=== PATIENT | male | born 1960 | race Caucasian/White ===

== ENCOUNTER 2022-02-18 10:12 | Emergency (ER) | payer OTHER, SELFPAY ==
--- NOTE | ~2022-02-18 | XR_ITS ---
XR abdomen/kub 1V 02/18/2022 10:56 INDICATION: Flank pain TECHNIQUE: KUB COMPARISON: None FINDINGS: Bowel gas pattern is normal. Moderate colonic fecal loading. There is no evidence of free a ir, mass, organomegaly, ascites or obstruction. No abnormal calculi are seen. There are pelvic phleb oliths. The bones appear intact. There is mild dextro scoliosis of the thoracolumbar spine. Mild lumb ar spondylosis. IMPRESSION: 1: No acute abdominal abnormality identified. Reviewed, dictated and finalized at location A.
[2022-02-18 10:20] VITALS: BP 136/90; PULSE 66; RESP 16; TEMP 36.8; O2SAT 100
--- NOTE | 2022-02-18 10:24 | ED.GENADULT ---
HPI - General Adult General Chief complaint: Unspecified Stated complaint: left side rib/side pain Time Seen by Provider: 02/18/22 10:41 Mode of arrival: ambulatory Limitations: no limitations History of Present Illness HPI narrative: 61-year-old male presents with concern for left flank pain. He reports pain started 2 days ago and is very intense. He reports it is now a constant pain. He reports has been taking a lot of ibuprofen without relief. He denies any exacerbating or relieving factors. He denies dysuria, hematuria, difficulty urinating. He denies any injury or trauma. He denies abdominal pain, midline back pain, nausea or vomiting. He reports pain is not worsened with deep breathing or coughing. He denies rash or blisters to the area. MD complaint: Flank pain Related Data Allergies Allergy/AdvReac Type Severity Reaction Status Date / Time No Known Allergies Allergy Verified 02/18/22 10:23 Review of Systems Review of Systems: CONSTITUTIONAL: Denies malaise, chills, sweats, or fever. GASTROINTESTINAL: Denies abdominal pain, nausea, vomiting, diarrhea GENITOURINARY: Denies dysuria or hematuria. Reports left flank pain SKIN: Denies open skin, rash or itching. MUSCULOSKELETAL: Denies midline back pain or myalgia. All systems reviewed & are unremarkable except as noted in HPI and below PMFSH Comments At time of signature, agree with nursing past medical, surgical, social and family history. There is no relevant family history pertinent to the presenting complaint Exam Narrative: GENERAL: Well-appearing and in no acute distress. HEAD: Normocephalic, atraumatic. EYES: PERRLA, sclera clear ENT: Nares clear. Mucous membranes moist. NECK: Supple. CHEST: No respiratory distress. Clear to auscultation. No bony deformities, no asymmetry. Speaks in full sentences. HEART: Regular rate and rhythm. No murmur heard. ABDOMEN: Soft, nontender, nondistended, normal active bowel sounds, no palpable masses. SKIN: Warm, dry, no visible rash, no bruising. No tenderness to touch upon the painful area NEURO: Alert and oriented x3. PSYCH: Normal mood and affect Course Course Emergency Course: Discussed possible diagnoses with patient, discussed transfer to emergency department for further evaluation. Patient reports his primary care doctor is in [place]. Patient does not want to go to the emergency room at this time. Patient was given instructions on when to go to the emergency room, and when to follow-up. Patient is aware of, understands and agrees to treatment plan. Anticipatory guidance given. Patient agrees to follow-up as directed and is aware of reasons to seek care at the emergency department. Portions of this record may have been created with voice recognition software Level of Care: Express Care Visit Vital Signs Vital signs: Reviewed. Medical Decision Making MDM Narrative Medical decision making narrative: Exam findings and imaging show no acute concerns or changes; patient is non-toxic appearing and is in no distress. Patient is appropriate for outpatient treatment and follow-up. Differential Diagnosis Differential Diagnosis: Pyelonephritis, nephrolithiasis, rib injury, pneumonia, shingles, nonspecific back pain Imaging Data My impression: Images reviewed, interpreted by radiologist, agree, see report. Radiologist's impression: XR abdomen/kub 1V 02/18/2022 10:56 INDICATION: Flank pain TECHNIQUE: KUB COMPARISON: None FINDINGS: Bowel gas pattern is normal. Moderate colonic fecal loading. There is no evidence of free air, mass, organomegaly, ascites or obstruction.? No abnormal calculi are seen. There are pelvic phleboliths. The bones appear intact. There is mild dextro scoliosis of the thoracolumbar spine. Mild lumbar spondylosis. IMPRESSION: 1: No acute abdominal abnormality identified. Critical Care Time Critical Care Time Critical Care Time: No Discharge Plan Discharge Clin
== END 2022-02-18 11:30 | disposition home or self-care (01) ==
PROVIDERS: Emergency Provider Nurse Practitioner
DX: R10.9 Unspecified abdominal pain (principal)
CPT/HCPCS: 74018; 81003; 99213; G0463

== ENCOUNTER 2022-05-13 11:48 | Emergency (ER) | payer SELFPAY ==
--- NOTE | ~2022-05-13 | XR_ITS ---
XR chest 2V DATE: 05/13/2022 12:25 INDICATION: Fatigue, muscle pain TECHNIQUE: PA and lateral views COMPARISON: None FINDINGS: Normal heart size. No hilar or mediastinal enlargement. No pulmonary infiltrate or consolid ation, pleural effusion or pulmonary vascular congestion or pneumothorax. IMPRESSION: No active cardiopulmonary disease Reviewed, dictated and finalized at location B.
--- NOTE | 2022-05-13 11:58 | ED.GENADULT ---
HPI - General Adult General Chief complaint: Unspecified Stated complaint: shooting pain in legs, fatigue,headache,cough Time Seen by Provider: 05/13/22 12:04 Source: patient and RN notes reviewed Mode of arrival: ambulatory Limitations: no limitations History of Present Illness HPI narrative: 61 y/o male presented for c/o feeling unwell for about 8 weeks since he had covid. States I am dying. Endorses fatigue and generalized body aches, some days he cannot move his arms. 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 Taking multiple ibuprofen throughout the day otherwise states he cannot function. Denies chest pain, dizziness, abdominal pain, decreased appetite, n/v/d/f/c. Reports occasional cough without shortness of breath or wheezing. His PCP is in [place]. Related Data Allergies Allergy/AdvReac Type Severity Reaction Status Date / Time No Known Allergies Allergy Verified 02/18/22 10:23 Review of Systems Review of Systems: CONSTITUTIONAL: Endorses malaise, denies chills, sweats, fever EYES: Denies visual changes, redness, or discharge ENT: Reports rhinorrhea, congestion, sinus pain, otalgia, sore throat CARDIOVASCULAR: Denies chest pain, palpitations, edema RESPIRATORY: Denies dyspnea GASTROINTESTINAL: Denies abdominal pain, nausea, vomiting, diarrhea SKIN: Denies rash or itching MUSCULOSKELETAL: Endorses myalgia and nerve pain down right leg NEUROLOGIC: Endorses headache Exam Narrative: GENERAL: well-appearing HEAD: Normocephalic EYES: PERRLA, conjunctivae clear ENT: Mucous membranes moist. TM pearly jones with normal light reflex bilaterally; no tragal tenderness. Oropharynx erythematous without lesions or exudate, no drooling, no hoarseness, no trismus, uvula midline. NECK: Supple. Reports pain with lateral movements. No lymphadenopathy, no vpt CHEST: Clear to auscultation, breath sounds equal. No respiratory distress, speaks in full sentences. HEART: Regular rate and rhythm. SKIN: Warm, dry, no rash. MUSC: steady gait, no vpt. Right low back and right posterior hip TTP c/w sciatic nerve pain. NEURO: Alert and oriented x3. PSYCH: Flat affect Course Course Emergency Course: Patient is aware of diagnosis, understands and agrees to treatment plan. Anticipatory guidance given. Patient agrees to follow-up as directed and is aware of reasons to seek care at the emergency department. Portions of this record may have been created with voice recognition software Level of Care: Express Care Visit Vital Signs Vital signs: reviewed Medical Decision Making MDM Narrative Medical decision making narrative: CXR reviewed with pt. His pcp is in [place]. He is advised at length to f/u with them for further evaluation and management of his concerns. He stated multiple times 'what about the dying?' Advised we cannot perform additional labwork, reinforced the need to f/u with pcp, and reviewed Rx's, supportive measures, and s/s to go to the ER. He is stable condition, VSS, and appropriate for outpatient treatment and follow up. Differential Diagnosis Differential Diagnosis: Influenza, covid, sinusitis, OM, strep pharyngitis, URI, long covid, viral infection, arthritis, neuromuscular disorder, fibromyalgia, radiculopathy, neuropathy Imaging Data Radiologist's impression: Patient: Mike Sanabria III : 1960 MR#: [id number] Age/Sex: 61 / M Acct:[id number] Loc: [facility]? ? ADM Date: 05/13/22Attending Dr: Ordering Physician: Pricilla Worthington APRN Date of Service: 05/13/22 Procedure(s): XR chest 2V Accession Number(s): [id number] cc: Pricilla Worthington APRN; UNKNOWN,DOCTOR~ XR chest 2V DATE: 05/13/2022 12:25 INDICATION: Fatigue, muscle pain? TECHNIQUE: PA and lateral views? COMPARISON: None? FINDINGS: Normal heart size. No hilar or mediastinal enlargement. No pulmonary infiltrate or consolidation, pleural effusion or pulmonary vascular congest
[2022-05-13 12:04] VITALS: BP 165/77; PULSE 74; RESP 16; TEMP 36.6; O2SAT 99
== END 2022-05-13 12:47 | disposition home or self-care (01) ==
PROVIDERS: Emergency Provider Nurse Practitioner Family; PCP Family Medicine
DX: M54.16 Radiculopathy, lumbar region (principal); M25.50 Pain in unspecified joint; Z86.16 Personal history of COVID-19
CPT/HCPCS: 71046; 99213; G0463

== ENCOUNTER 2022-06-07 14:12 | Outpatient (CLI) | payer OTHER, SELFPAY ==
[2022-06-07 19:50] LABS: Basophils Absolute Auto 0.1 K/mm3 (0.0-0.1); Basophils Percent Auto 0.9 % (0.2-1.2); Eosinophils Absolute Auto 0.1 K/mm3 (0-0.3); Eosinophils Percent Auto 1.5 % (0-4.4); Hematocrit 28.9 % (42.0-52.0); Hemoglobin 9.6 g/dL (14.0-18.0); Immature Granulocyte Absolute 0.48 K/mm3 (0.00-0.031); Immature Granulocyte Percent A 7.2 % (0-0.5); Lymphocytes Absolute Auto 1.48 K/mm3 (0.9-3.2); Lymphocytes Percent Auto 22.1 % (18.3-44.2); Mean Corpuscular HGB Conc 33.2 g/dl (32-36); Mean Corpuscular Hemoglobin 31.4 pg (26-34); Mean Corpuscular Volume 94.4 fl (80-100); Mean Platelet Volume 9.3 fl (7.4-10.4); Monocytes Absolute Auto 0.5 K/mm3 (0.1-0.6); Monocytes Percent Auto 7.8 % (2.6-8.5); Neutrophils Absolute Auto 4.1 K/mm3 (1.3-6.7); Neutrophils Percent Auto 60.5 % (45.5-73.1); Nucleated Red Blood Cells Perc 0.3 % (0.0-0.2); Platelet Count Result 250 k/mm3 (150-375); Red Blood Count 3.06 M/mm3 (4.6-6.20); Red Cell Distribution Width 13.1 % (11.5-14.5); White Blood Count 6.7 K/mm3 (4.5-10.0)
[2022-06-07 20:10] LABS: Hemoglobin A1C 6.1 % (<5.7)
[2022-06-07 20:22] LABS: Rheumatoid Factor < 8.6 IU/ML (<12)
[2022-06-07 20:33] LABS: Alanine Aminotransferase 27 U/L (6-50); Albumin Level 3.6 g/dL (3.5-5.1); Alkaline Phosphatase 495 U/L (38-126); Anion Gap 12 mmol/L (8-16); Aspartate Amino Transferase 57 U/L (17-59); Bilirubin,Total 0.3 mg/dL (0.2-1.3); Blood Urea Nitrogen 15 mg/dL (9-20); Carbon Dioxide 24 mmol/L (22-30); Chloride 103 mmol/L (98-107); Creatine Kinase 116 U/L (55-170); Estimated Glomerular Filt Rate > 60; Glucose 102 mg/dL (65-110); Potassium 4.3 mmol/L (3.4-5.0); Sodium 139 mmol/L (137-145)
[2022-06-07 20:37] LABS: CRP 15.4 mg/dL (<1.0); Vitamin D 25 Hydroxy 45.9 ng/mL
[2022-06-07 21:50] LABS: Erythrocyte Sedimentation Rate 137 mm/hr (0-20)
[2022-06-13 21:53] LABS: ANA Pattern Nuclear, Speckled; ANA Titer 1:40 (Negative)
== END 2022-06-07 14:13 | disposition home or self-care (01) ==
LOC: ANHGOSHLAB 14:13
PROVIDERS: PCP Family Medicine; Visit Provider Family Medicine
DX: R53.83 Other fatigue (principal); M25.50 Pain in unspecified joint; M79.10 Myalgia, unspecified site; Z13.228 Encounter for screening for other metabolic disorders
CPT/HCPCS: 36415; 80053; 82085; 82306; 82550; 83036; 84443; 85025; 85652; 86038; 86039; 86140; 86430

== ENCOUNTER 2022-06-16 08:59 | Outpatient (CLI) | payer OTHER, SELFPAY ==
--- NOTE | ~2022-06-16 | NM_ITS ---
EXAMINATION: NM bone scan whole body DATE: 06/16/2022 12:59 INDICATION: Weight loss, fatigue and elevated alkaline phosphatase. TECHNIQUE: 3 4.0 mCi Tc-99m HDP was administered intravenously. Delayed whole-body scintigrams were obtained. COMPARISON: Chest radiograph dated 05/13/2022 and KUB dated 02/18/2022 FINDINGS/IMPRESSION: There are numerous scattered foci of abnormal bone uptake in atypical locations in the axial and appe ndicular skeleton suspicious for metastatic disease or multiple myeloma. No evident corresponding lyt ic or blastic bone lesions evident on the prior radiographs. Consider correlation with SPEP/UPEP leve ls and with pre and postcontrast MRI of the right hip and pelvis were some of most prominent lesions are located. Reviewed, dictated and finalized at location A.
== END 2022-06-16 09:00 | disposition home or self-care (01) ==
PROVIDERS: PCP Family Medicine; Visit Provider Family Medicine
DX: R74.8 Abnormal levels of other serum enzymes (principal)
CPT/HCPCS: 78306; A9561

== ENCOUNTER 2022-06-18 09:00 | Outpatient (CLI) | payer OTHER, SELFPAY ==
[2022-06-18 19:57] LABS: Anion Gap 9 mmol/L (8-16); Blood Urea Nitrogen 11 mg/dL (9-20); Calcium 8.6 mg/dL (8.4-10.2); Carbon Dioxide 22 mmol/L (22-30); Chloride 102 mmol/L (98-107); Estimated Glomerular Filt Rate > 60; Glucose 102 mg/dL (65-110); Potassium 4.2 mmol/L (3.4-5.0); Sodium 133 mmol/L (137-145)
[2022-06-18 20:19] LABS: Prostate Specific Antigen 8.7 ng/mL (< OR = 4.0)
[2022-06-22 14:54] LABS: Albumin 2.8 g/dL (3.8-4.8); Alpha 1 Globulin 0.7 g/dL (0.2-0.3); Alpha 2 Globulin 1.2 g/dL (0.5-0.9); Beta 1 Globulin 0.3 g/dL (0.4-0.6); Gamma Globulin 0.5 g/dL (0.8-1.7); Protein, Total 5.9 g/dL (6.1-8.1)
== END 2022-06-18 09:01 | disposition home or self-care (01) ==
LOC: ANHGOSHLAB 09:02
PROVIDERS: PCP Family Medicine; Visit Provider Family Medicine
DX: R20.2 Paresthesia of skin (principal); R94.8 Abnormal results of function studies of other organs and systems; R60.9 Edema, unspecified; Z12.5 Encounter for screening for malignant neoplasm of prostate
CPT/HCPCS: 36415; 80048; 84153; 84155; 84165; G0103

== ENCOUNTER → 2022-06-18 09:18 | Outpatient (CLI) | payer OTHER, SELFPAY ==
--- NOTE | ~2022-06-18 | XR_ITS ---
Corrected Report Order # Associated Wrong Visit # 07/07/2022 [facility] This report was recreated on 07/07/2022. Original report was signed by Bony Young M.D. on 06/18/2022 12:53 CDT. EXAMINATION: XR chest 2V 06/18/2022 09:32 INDICATION: Dyspnea with exertion PROCEDURE: 2 view chest COMPARISON: 05/13/2022 FINDINGS: The lungs are clear. The cardiomediastinal silhouette is within normal limits. There are no pleural effusions. There is no pneumothorax suspected. IMPRESSION: 1: NO ACUTE CARDIOPULMONARY DISEASE. Reviewed, dictated and finalized at location B. Electronically signed by FL[facility]ITAL MEDICAL CENTERGiovanna
== END ==
PROVIDERS: PCP Family Medicine; Visit Provider Family Medicine
DX: J39.8 Other specified diseases of upper respiratory tract (principal)
CPT/HCPCS: 71046

== ENCOUNTER 2022-06-21 13:42 | Outpatient (CLI) | payer OTHER, SELFPAY ==
[2022-06-24 17:39] LABS: Albumin 2.5 g/dL (3.8-4.8); Alpha 1 Globulin 0.8 g/dL (0.2-0.3); Alpha 2 Globulin 1.2 g/dL (0.5-0.9); Beta 1 Globulin 0.3 g/dL (0.4-0.6); Gamma Globulin 0.4 g/dL (0.8-1.7); Protein, Total 5.5 g/dL (6.1-8.1)
== END 2022-06-21 13:43 | disposition home or self-care (01) ==
LOC: ANHGOSHLAB 13:45
PROVIDERS: PCP Family Medicine; Visit Provider Family Medicine
DX: R94.8 Abnormal results of function studies of other organs and systems (principal); R20.2 Paresthesia of skin
CPT/HCPCS: 36415; 84155; 84165

== ENCOUNTER 2022-06-28 11:26 | Inpatient (IN) | payer OTHER, SELFPAY ==
[2022-06-28] VITALS (17 sets, daily range): BP systolic 106–140; BP diastolic 55–75; PULSE 72–88; RESP 17–23; TEMP 36.5–37.4; O2SAT 94–100; BMI 22.8
--- NOTE | ~2022-06-28 | MR_ITS ---
EXAMINATION: MR lumbar spine wo/w con DATE: 06/29/2022 13:36 INDICATION: Metastatic disease. Back pain. Urinary retention. TECHNIQUE: Magnetic resonance imaging (MRI) of the lumbar spine was performed without and with 15 mL MultiHance intravenous contrast. COMPARISON: CT abdomen and pelvis 06/28/2022 FINDINGS: Bone alignment is normal. There are Schmorl's nodes at multiple levels. There are scattered enhancing lesions involving all bones. Intervertebral disc heights are normal. The distal spinal cor d signal intensity is normal. The conus medullaris is at T12-L1. There is mild left hydronephrosis. T he bladder is markedly distended. The following disc levels are specifically discussed: L1-L2: The disc does not extend beyond the endplate margin. There is mild bilateral facet joint osteo arthritis. There is no neural foraminal stenosis. There is no central canal stenosis. L2-L3: The disc is bulging. There is mild bilateral facet joint osteoarthritis. There is mild bilater al neural foraminal stenosis. There is no central canal stenosis. L3-L4: The disc is bulging. There is mild bilateral facet joint osteoarthritis. There is mild right a nd moderate left neural foraminal stenosis. There is mild central canal stenosis. L4-L5: The disc is bulging and has an annular fissure. There is moderate bilateral facet joint osteoa rthritis. There is mild right and moderate left neural foraminal stenosis. There is mild central heena l stenosis. L5-S1: The disc is bulging and has an annular fissure. There is moderate bilateral facet joint osteoa rthritis. There is mild bilateral neural foraminal stenosis. There is mild central canal stenosis. IMPRESSION: 1. Widespread bone lesions, consistent with metastatic disease. 2. Moderate lumbar spondylosis. 3. Mild left hydronephrosis. Reviewed, dictated and finalized at location A. ING MACHINE TENDER
--- NOTE | ~2022-06-28 | MR_ITS ---
EXAMINATION: MR thoracic spine wo/w con DATE: 06/29/2022 13:36 INDICATION: Metastatic disease. Back pain. Urinary retention. TECHNIQUE: Magnetic resonance imaging (MRI) of the thoracic spine was performed without and with 15 m L MultiHance intravenous contrast. COMPARISON: Chest CT 06/28/2022 FINDINGS: Bone alignment is normal. There is mild chronic anterior wedging of T5-T12 vertebral bodies . There are widespread enhancing lesions involving all bones. There are Schmorl's nodes at many level s. There is mildly decreased disc height at T6-T7. The discs do not extend beyond the endplate margin s. There is multilevel mild facet joint osteoarthritis. No neural foraminal stenosis or central canal stenosis. The spinal cord signal intensity is normal. IMPRESSION: 1. Widespread bone lesions, consistent with metastatic disease. 2. Mild thoracic spondylosis. Reviewed, dictated and finalized at location A. MONITOR
--- NOTE | ~2022-06-28 | CT_ITS ---
EXAMINATION: CTA chest abdomen pelvis DATE: 06/28/2022 16:20 INDICATION: Shortness of breath. Bilateral posterior hip pain. TECHNIQUE: Computed tomographic angiography (CTA) of the chest, abdomen, and pelvis was performed wit h 100 mL Omnipaque-350 intravenous contrast. Automated exposure control and iterative reconstruction technique were employed. The dose-length product was 619.47 mGy-cm. Maximum intensity projection 3D-r econstructions of the aorta and other arteries were constructed by the technologist on a separate wor kstation. COMPARISON: Bone scan 06/16/2022 FINDINGS: CHEST CTA: There is mild scarring at the lung apices. There is mild emphysema. The lungs demonstrate smooth sept al thickening, consistent with mild pulmonary edema. No pleural effusion. The heart size is normal. N o pericardial effusion. Thoracic aorta is normal in caliber. There is mediastinal and bilateral supra clavicular lymphadenopathy. There are widespread scattered sclerotic lesions of bone. ABDOMEN AND PELVIS CTA: The liver, gallbladder, spleen, pancreas, adrenal glands, and right kidney are normal. There is mild left hydronephrosis and hydroureter to the bladder. The bladder is distended with diffuse wall thicke rishabh. The prostate is mildly enlarged. There are no dilated loops of bowel. The appendix is normal. A bdominal aorta is normal in caliber. No aneurysm or dissection. There is mild aortic atherosclerosis. There is no significant stenosis of celiac axis, superior mesenteric artery, the renal arteries, or inferior mesenteric artery. There is mild left external iliac lymphadenopathy. There is no free intra peritoneal fluid. There are widespread scattered sclerotic lesions of bone. There is mild osteoarthri tis of the hips. IMPRESSION: 1. Widespread scattered sclerotic lesions of bone, consistent with metastatic disease such as prostat e cancer. 2. Left external iliac, mediastinal, and bilateral supraclavicular lymphadenopathy, consistent with m etastatic disease. 3. Mild left hydronephrosis and hydroureter. 4. Distended bladder with diffuse wall thickening, which may be seen with chronic outlet obstruction. Reviewed, dictated and finalized at location A. GN AGENT IMPRESSION: 1. Widespread scattered sclerotic lesions of bone, consistent with metastatic d isease such as prostate cancer. 2. Left external iliac, mediastinal, and bilateral supraclavicular lymphadenopa thy, consistent with metastatic disease. 3. Mild left hydronephrosis and hydroureter. 4. Distended bladder with diffuse wall thickening, which may be seen with chron ic outlet obstruction.
--- NOTE | ~2022-06-28 | US_ITS ---
EXAMINATION: US venous doppler [facility] DATE: 06/28/2022 16:07 INDICATION: leg edema . TECHNIQUE: Grayscale images without and with compression and Doppler images of the bilateral lower ex tremity veins were obtained. COMPARISON: None FINDINGS: The right common femoral vein, profunda (deep) femoral vein, femoral vein, popliteal vein, peroneal v ein, posterior tibial veins, gastrocnemius vein, and greater saphenous vein are patent. The left common femoral vein, profunda femoral vein, femoral vein, popliteal vein, peroneal vein, pos terior tibial veins, gastrocnemius vein, and greater saphenous vein are patent. IMPRESSION: 1. Patent bilateral lower extremity veins. No evidence of deep venous thrombosis. Reviewed, dictated and finalized at location K. DESIGNER IMPRESSION: 1. Patent bilateral lower extremity veins. No evidence of deep venous thrombos is.
--- NOTE | ~2022-06-28 | MR_ITS ---
EXAMINATION: MR cervical spine wo/w con DATE: 06/29/2022 13:35 INDICATION: Metastatic disease of bone. Back pain. Urinary retention. TECHNIQUE: Magnetic resonance imaging (MRI) of the cervical spine was performed without and with 15 m L MultiHance intravenous contrast. COMPARISON: None FINDINGS: Bone alignment is normal. There is mild chronic anterior wedging of C7 vertebral body. Ther e are enhancing lesions involving all bones. There is mildly decreased disc height at C4-C5 and C5-C6 and moderately decreased disc height at C6-C7. The spinal cord signal intensity is normal. The follo wing disc levels are specifically discussed: C2-C3: The disc does not extend beyond the endplate margin. There is mild left uncovertebral joint os teoarthritis. There is severe right and moderate left facet joint osteoarthritis. There is mild bilat eral neural foraminal stenosis. There is no central canal stenosis. C3-C4: The disc is bulging. There is mild right and severe left uncovertebral joint osteoarthritis. T here is moderate right and severe left facet joint osteoarthritis. There is moderate left neural fora colin stenosis. There is mild central canal stenosis. C4-C5: The disc is bulging. There is mild bilateral uncovertebral joint osteoarthritis. There is mild bilateral facet joint osteoarthritis. There is no neural foraminal stenosis. There is mild central c anal stenosis. C5-C6: The disc is bulging. There is severe bilateral uncovertebral joint osteoarthritis. There is mi ld bilateral facet joint osteoarthritis. There is mild bilateral neural foraminal stenosis. There is mild central canal stenosis. C6-C7: The disc does not extend beyond the endplate margin. There is moderate left uncovertebral join t osteoarthritis. There is no facet joint osteoarthritis. There is mild left neural foraminal stenosi s. There is no central canal stenosis. C7-T1: The disc does not extend beyond the endplate margin. There is severe left uncovertebral joint osteoarthritis. There is mild bilateral facet joint osteoarthritis. There is mild left neural foramin al stenosis. There is no central canal stenosis. IMPRESSION: 1. Widespread lesions involving all bones, consistent with metastatic disease. 2. Moderate cervical spondylosis. Reviewed, dictated and finalized at location A. INAL COMPUTER OPERATOR
--- NOTE | ~2022-06-28 | BM_ITS ---
EXAMINATION: CCL bone marrow asp w bx diag ORDER COMPLETED DATE: 06/30/2022 10:23 INDICATION: Anemia. Metastatic disease. TECHNIQUE: A time-out was performed to verify the patient's name, date of , and procedure to b e performed. The procedure including the risks and benefits was discussed with the patient. Risks dis cussed included bleeding, infection, nerve injury and allergic reaction. The patient understood the r isks and agreed to proceed. The skin overlying the right posterior iliac spine was prepped and draped in usual sterile fashion. Anesthetic was administered with 1% lidocaine subcutaneously. Moderate co nscious sedation was achieved with 50 mcg fentanyl IV. An 11 gauge needle was inserted into the ilium with fluoroscopic guidance. Attempt was made at bone marrow aspiration which yielded no sample. Ther efore the needle was further advanced and a core biopsy specimen obtained and placed in a sterile con tainer to be used for a marrow smear. An 8 gauge needle was then inserted into the ilium with fluoros copic guidance. 2 core biopsy specimens were obtained and placed in formalin. The needle was removed and the entry site was cleaned and dressed. There were no immediate complications. A total of 45 flu oroscopic images were recorded. Fluoroscopy exposure time was 0.1 minutes. FINDINGS: Real-time fluoroscopy demonstrates the biopsy needle tip overlying the left posterior iliac spine. IMPRESSION: 1. Successful fluoroscopic guided bone marrow biopsy. 2. Attempted bone marrow aspiration was unsuccessful and therefore an additional core biopsy specimen s was obtained for a marrow smear. Reviewed, dictated and finalized at location A. SALES AUDIT CLERK IMPRESSION: 1. Successful fluoroscopic guided bone marrow biopsy. 2. Attempted bone marrow aspiration was unsuccessful and therefore an additiona l core biopsy specimens was obtained for a marrow smear.
[2022-06-28 15:03] LABS: Hematocrit 23.6 % (42.0-52.0); Hemoglobin 7.4 g/dL (14.0-18.0); Mean Corpuscular HGB Conc 31.4 g/dl (32-36); Mean Corpuscular Hemoglobin 30.8 pg (26-34); Mean Corpuscular Volume 98.3 fl (80-100); Mean Platelet Volume 9.7 fl (7.4-10.4); Platelet Count Result 203 k/mm3 (150-375); Red Cell Distribution Width 15.1 % (11.5-14.5); White Blood Count 9.4 K/mm3 (4.5-10.0)
[2022-06-28 15:04] LABS: Appearance Urine Clear (Clear); Bilirubin Urine Negative (Negative); Blood Urine Negative (Negative); Color Urine Yellow (Yellow); Glucose Urine UA Negative (Negative); Ketones Urine Negative (Negative); Leukocyte Esterase Ur Negative LEU/UL (Negative); Nitrate Urine Negative (Negative); Protein Urine Negative (Negative); Specific Grav Ur 1.015 (1.001-1.035); Urobilinogen Urine 0.2 mg/dL (<2.0); pH Urine 5.5 (5.0-9.0)
[2022-06-28 15:05] LABS: Add Urine Microscopic? NO
[2022-06-28 15:07] LABS: Alanine Aminotransferase 27 U/L (6-50); Albumin Level 3.5 g/dL (3.5-5.1); Alkaline Phosphatase 666 U/L (38-126); Anion Gap 12 mmol/L (8-16); Aspartate Amino Transferase 42 U/L (17-59); Bilirubin,Total 0.4 mg/dL (0.2-1.3); Blood Urea Nitrogen 18 mg/dL (9-20); Calcium 8.5 mg/dL (8.4-10.2); Carbon Dioxide 25 mmol/L (22-30); Chloride 104 mmol/L (98-107); Estimated CRCL calculation 94 ml/min; Estimated Glomerular Filt Rate > 60; Glucose 117 mg/dL (65-110); Sodium 141 mmol/L (137-145)
[2022-06-28] MEDS: MORPHINE SULFATE (*CRX) 4 MG/ML INJ IV PUSH (15:37)
[2022-06-28] MEDS: ONDANSETRON INJ 4 MG/2 ML VIAL IV PUSH (15:37)
[2022-06-28 15:51] LABS: SARS-CoV-2 RNA PCR Negative
[2022-06-28 15:55] LABS: Schistocytes None Seen (NORMAL)
[2022-06-28 16:04] LABS: Band Neutrophils Percent 5 % (0-6); Lymphocytes Absolute Manual 3.38 K/mm3 (1.1-4.5); Monocytes Absolute Manual 1.41 K/mm3 (0.1-0.90); Monocytes Percent Manual 15 % (3-9); Neutrophils Percent Manual 44 % (46-73); Nucleated Red Blood Cells 1 %; Platelet Estimate Adequate (Adequate); Total Cells Counted 100
[2022-06-28 16:05] LABS: Anisocytosis 1+ (NORMAL)
[2022-06-28 16:06] LABS: Hypochromasia 1+ (NORMAL)
[2022-06-28 17:21] LABS: Erythrocyte Sedimentation Rate > 140 mm/hr (0-20); Iron 43 ug/dL (49-181)
[2022-06-28 17:24] LABS: CRP 19.3 mg/dL (<1.0)
[2022-06-28 17:32] LABS: Percent Iron Saturation 18 % (20-50)
--- NOTE | 2022-06-28 17:49 | ED.BACK ---
HPI - Back Pain/Injury General Chief Complaint: Back Pain/Injury Stated Complaint: back pain Time Seen by Provider: 06/28/22 14:02 Source: patient and family Mode of arrival: ambulatory Limitations: no limitations History of Present Illness Quality: dull Location: lumbar spine Radiation: left leg below the knee and right leg below the knee Exacerbating factors: none Relieving factors: none Associated symptoms: weakness and difficulty walking Related Data Allergies Allergy/AdvReac Type Severity Reaction Status Date / Time No Known Allergies Allergy Verified 06/28/22 13:59 Review of Systems Review of Systems: All systems reviewed & are unremarkable except as noted in HPI and below Constitutional: Constitutional: Reports body ache(s) and Reports fatigue Eyes: Eyes: Reports no additional eye complaints ENT: Reports system reviewed and no additional complaints, except as documented Cardiovascular: Cardiovascular: Reports no additional cardiovascular complaints Respiratory: Respiratory: Reports no additional respiratory complaints Gastrointestinal: Gastrointestinal: Reports no additional gastrointestinal complaints Musculoskeletal: Musculoskeletal: Reports as per HPI Neurologic: Reports system reviewed and no additional complaints, except as documented Psychiatric: Psychiatric: Reports no additional psychiatric complaints Endocrine: Endocrine: Reports no additional endocrine complaints Hematologic/Lymphatic: Hematologic/Lymphatic: Reports no additional hematologic/lymphatic complaints [facility] Surgical History Surgical History Hx of tonsillectomy Social History Social History Smoking status: Former smoker Smoking end date: 06/17/22 Alcohol intake: current Drinks per week: 7 Alcohol use details: wine Substance use: never Has the Lack of Transportation Kept You From Medical Appointments or From Getting Medications?: No Within the Past 12 Months, Were You Worried Whether Your Food Would Run Out Before You Got Money to Buy More?: Never True What is Your Housing Situation Today?: I Have Housing Are You Worried That in the Next 2 Months, You May Not Have Your Own Housing to Live In?: No Do You Have Trouble Paying Your Heating Or Electricity Bill?: No Do You Have Trouble Paying For Medicines?: No Are You Currently Unemployed and Looking for Work?: No Highest Level of Education Completed: Decline to Answer Do You Have Trouble With Childcare or the Care of a Family Member?: No Exam Narrative: GENERAL: Well-appearing, thin ,pale, and in no acute distress. HEAD: Normocephalic, atraumatic. EYES: PERRLA and EOMI.. NECK: Supple. CHEST: Clear to auscultation. No respiratory distress. HEART: Regular rate and rhythm. No murmur heard. Normal peripheral pulses. ABDOMEN: Soft, nontender, nondistended, normal active bowel sounds. EXTREMITIES: Normal range of motion. No edema. SKIN: Warm, dry, no rash. NEURO: No focal deficits. Alert and oriented x3. PSYCH: Normal mood and affect. Course Course Emergency Course: I reviewed his chart from his previous office visit we will obtain lab work, ordered a CT of the abdomen pelvis. Control his pain with morphine. Inform patient and his about his lab work, CT findings. Agreed with admission. Discussed with the hospitalist agreed. Vital Signs Vital signs: Vital Signs Temperature 37.4 C 06/28/22 12:06 Pulse Rate 88 06/28/22 12:06 Respiratory Rate 18 06/28/22 12:06 Blood Pressure 134/75 06/28/22 12:06 Pulse Oximetry 99 06/28/22 12:06 Temperature 37.4 C 06/28/22 12:06 Pulse Rate 76 06/28/22 17:30 Respiratory Rate 22 H 06/28/22 17:30 Blood Pressure 106/55 L 06/28/22 17:16 Pulse Oximetry 94 06/28/22 17:00 MDM - Back Pain/Injury Differential Diagnosis Differential diagnosis: Likely lumbar radiculopathy,
--- NOTE | 2022-06-28 18:00 | PM.IMHP ---
H&P: HPI History of Present Illness Date/Time: 06/28/22 18:00 Chief Complaint: Back pain and increasing weakness. Narrative: This is a pleasant 62-year-old male who presented to the emergency department from home for evaluation of back pain and increasing weakness. He developed ?all-over pain? about 3 months ago with daily episodes of headache, neck pain, low back discomfort, and hip pain. He was seen by his doctor and they thought perhaps he had fibromyalgia and he was started on duloxetine which helped his headache and neck pain however he continues to have increasing low back and hip pain. He has been taking Advil and acetaminophen every 2 to 3 hours to help keep the pain at bay with lesser and lesser benefit. He has also had pretty consistent nausea and he has lost 15 pounds in the last month or so. This prompted a workup by his primary doctor and is noted that he had a negative rheumatoid factor, positive GABRIELLE with a speckled pattern, mild increase an aldolase, and normal CK level. Nuclear med bone scan on 06/16/2022 showed numerous scattered foci of abnormal bone uptake in a typical locations in the axial and appendicular skeleton suspicious for metastatic disease or multiple myeloma. Serum protein electrophoresis showed hypogammaglobulinemia and no M spike was detected. He was referred for MRI however that has not yet been done due to pending insurance approval. It appears he is supposed to have a PET-CT scan done as well. In any event his pain has continued to get worse and he came in for evaluation today. On exam he was noted to have significant swelling in his left lower extremity and a subsequent venous Doppler ultrasound showed patent bilateral lower extremity veins. A CTA of the chest, abdomen, and pelvis showed widespread scattered sclerotic lesions; left external iliac, mediastinal, and bilateral supraclavicular lymphadenopathy consistent with metastatic disease; mild left hydronephrosis and hydroureter; and distended bladder with diffuse wall thickening. With further questioning he does endorse having difficulties urinating since the 1st of this year and it sounds like he was started on Flomax though he stopped taking that as it did not help. He is being admitted in this setting for pain control and urology and oncology consultations. He has no known history of malignancy. He has not had fever, chills, or sweats. He denies dysuria. No vomiting or diarrhea. No cold or flu symptoms. No saddle anesthesia. No incontinence. No focal deficits. He denies chest pain shortness a breath. Of note his hemoglobin has trended downwards over the last couple of months and given the amount of NSAIDs he has been taking he was questioned about GI symptoms. He has had nausea as detailed above and he does admit to occasional bloating though no significant epigastric or abdominal discomfort. He has not noticed any dark stools. Review of Systems Review of Systems: Twelve systems were reviewed and are negative except for as per HPI. [facility] Past Medical History Medical History (Updated 06/28/22 @ 23:30 by Arabella Wright PA-C) Kidney stones Surgical History Surgical History (Updated 06/28/22 @ 23:25 by Arabella Wright PA-C) History of tonsillectomy Family History Family History Father Malignant neoplasm of prostate Social History Social History (Updated 06/28/22 @ 23:26 by Arabella Wright PA-C) Social History: Surrogate medical decision maker: Glory Sanabria, spouse. Code status: Full code. Years smoked: 40 Smoking status: Heavy tobacco smoker Tobacco type: cigarettes Second hand tobacco smoke exposure: No Smoking end date: 06/17/22 Alcohol intake: former Drinks per week: 7 Alcohol use details: wine Substance use: never Has the Lack of Transportation Kept You From Medical Appointments or From Getting Medications?: No Within the Past 12 Months, Were You Worrie
[2022-06-28] MEDS: HYDROmorphone HCL INJ (*CRX) 1 MG/ML SYR 0.5 MG IV PUSH (20:04)
[2022-06-28] MEDS: HYDROcodone/acetaminophen (*CRX) 5-325 MG TABLET 1 TAB PO (22:43)
[2022-06-29] VITALS (10 sets, daily range): BP systolic 93–143; BP diastolic 54–87; PULSE 64–81; RESP 16–18; TEMP 36.2–37.3; O2SAT 94–100
[2022-06-29 00:20] LABS: Hematocrit 20.4 % (42.0-52.0); Hemoglobin 6.6 g/dL (14.0-18.0)
[2022-06-29] MEDS: MORPHINE SULFATE (*CRX) 4 MG/ML INJ IV PUSH ×3 (00:20→07:36)
--- NOTE | 2022-06-29 03:21 | ADMGEN ---
This patient, Mike Sanabria III, was admitted to 3 [facility] Room 319-01. Patient/family oriented to hospital policies and general routines including ID bracelet, bed and alarms, visiting hours, pain management, procedures, bathroom and other care routines, personal items, smoking policy, room service/diet, and visiting hours. Information on how to activate the Rapid Response Team has been discussed. Patient/Family are encouraged to report perceived risks to care and to ask questions if they do not understand what they are told or what they should do. Patient arrived on the unit and complained that the pain medication was not working and he wanted Morphine. Medications was changed and patient is still anxious and worried about his outcome of test results.
[2022-06-29 06:41] LABS: Basophils Percent Auto 0.5 % (0.2-1.2); Eosinophils Percent Auto 0.5 % (0-4.4); Hematocrit 21.7 % (42.0-52.0); Immature Granulocyte Absolute 0.61 K/mm3 (0.00-0.031); Lymphocytes Absolute Auto 1.52 K/mm3 (0.9-3.2); Lymphocytes Percent Auto 19.8 % (18.3-44.2); Mean Corpuscular HGB Conc 31.3 g/dl (32-36); Mean Corpuscular Hemoglobin 30.9 pg (26-34); Mean Corpuscular Volume 98.6 fl (80-100); Mean Platelet Volume 9.8 fl (7.4-10.4); Monocytes Absolute Auto 0.7 K/mm3 (0.1-0.6); Monocytes Percent Auto 8.9 % (2.6-8.5); Neutrophils Absolute Auto 4.8 K/mm3 (1.3-6.7); Neutrophils Percent Auto 62.3 % (45.5-73.1); Nucleated Red Blood Cells Absolute Auto 0.1 K/mm3 (0.0-0.012); Nucleated Red Blood Cells Perc 1.4 % (0.0-0.2); Platelet Count Result 149 k/mm3 (150-375); Red Cell Distribution Width 15.4 % (11.5-14.5); White Blood Count 7.7 K/mm3 (4.5-10.0)
[2022-06-29 06:47] LABS: Alanine Aminotransferase 26 U/L (6-50); Albumin Level 3.3 g/dL (3.5-5.1); Alkaline Phosphatase 590 U/L (38-126); Anion Gap 8 mmol/L (8-16); Aspartate Amino Transferase 34 U/L (17-59); Bilirubin,Total 0.5 mg/dL (0.2-1.3); Blood Urea Nitrogen 14 mg/dL (9-20); Calcium 8.4 mg/dL (8.4-10.2); Carbon Dioxide 23 mmol/L (22-30); Chloride 104 mmol/L (98-107); Estimated CRCL calculation 105 ml/min; Estimated Glomerular Filt Rate > 60; Glucose 120 mg/dL (65-110); Magnesium 2.3 mg/dL (1.6-2.3); Potassium 4.7 mmol/L (3.4-5.0); Sodium 135 mmol/L (137-145)
[2022-06-29 07:26] LABS: Hemoglobin 6.8 g/dL (14.0-18.0)
[2022-06-29 07:36] LABS: Hypochromasia 1+ (NORMAL); Platelet Estimate Adequate (Adequate)
[2022-06-29 07:37] LABS: Anisocytosis 2+ (NORMAL); Ovalocytes 1+ (NORMAL); Poikilocytosis 1+ (NORMAL); Schistocytes None Seen (NORMAL)
--- NOTE | 2022-06-29 08:07 | PC.NURSE ---
Patient is stating that his pain level is still high and will like to have Morphine more often, Patient IBU pills was taken away because patient stated that he had them and would take them to reduce his pain. Patient teaching was done with patient about drug interaction with home and over the counter medications. Pills are in Patient drawer on the cart.
[2022-06-29] MEDS: oxyCODONE HCL (*CRX) 5 MG TAB IR PO ×3 (08:48→21:46)
[2022-06-29] MEDS: HYDROmorphone HCL INJ (*CRX) 1 MG/ML SYR IV PUSH (08:49)
[2022-06-29] MEDS: PANTOPRAZOLE SODIUM IV 40 MG VIAL IV PUSH ×2 (08:52→21:36)
[2022-06-29] MEDS: TAMSULOSIN HCL 0.4 MG CAPSULE PO (08:52)
[2022-06-29] MEDS: DULoxetine HCL 60 MG CAPSULE.DR PO (08:52)
--- NOTE | 2022-06-29 09:33 | PM.IMPN ---
Progress Note: A&P Assessment and Plan (1) Generalized weakness: Code(s): R53.1 - Weakness Status: Acute Assessment and Plan: c/o generalized fatigue. BLE leg weakness with radiating pain down both legs. No saddle anesthesia. Noted to have distended bladder on CT. Check MRI cervical, thoracic, lumbar spine Neurosurgery consulted d/t complaints. (2) Normocytic anemia: Code(s): D64.9 - Anemia, unspecified Status: Acute Assessment and Plan: Taking ibuprofen 800 mg Q2 hours for several weeks prior to admission Hgb 6.8 and 1 unit PRBC ordered. Hemoglobin was 9.7 on 06/07/22. FOBT ordered and pending. Repeat H/H 2 hours transfusion and in am. He will need EGD and colonoscopy for evaluation of anemia. If FOBT is positive, will consult GI. Protonix 40 mg IV BID (3) Urinary retention: Code(s): R33.9 - Retention of urine, unspecified Status: Acute Assessment and Plan: Started on flomax and has been taking up until 3 weeks ago and had no noticeable improvement in frequency. CT Abd/pelvis with bladder distention, bladder wall thickening and left hyrdonephrosis and hyroureter. Pt refusing hayward catheter. Urology consulted. PSA mildly elevated 8.4 06/18/22 Obtain PVR Q shift. Insert hayward catheter if agreeable or straight cath intermittently. (4) Bone pain: Code(s): M89.8X9 - Other specified disorders of bone, unspecified site Status: Acute Assessment and Plan: Lower back pain, severe, for approximately 4 months with lumbar radiculopathy, urinary retention noted on CT, metastatic disease with scattered bony lesions on CT as well. Dexamethasone 10 mg IV x1 stat Check MRI spine Oxycodone IR 5 mg Q4 hours with Diluadid 0.5 mg IV Q2 hours for breakthrough pain. (5) Metastatic disease: Qualifiers: Area of secondary neoplastic involvement: unspecified site Qualified Code(s): C79.9 - Secondary malignant neoplasm of unspecified site Code(s): C79.9 - Secondary malignant neoplasm of unspecified site Status: Acute Assessment and Plan: Patient with scattered sclerotic bone lesions, and lymphadenopathy to bilateral supraclavicular, left external iliac and mediastinal regions consistent with metastatic disease. Oncology consulted. (6) Radiculopathy: Qualifiers: Spinal region: lumbosacral Qualified Code(s): M54.17 - Radiculopathy, lumbosacral region Code(s): M54.10 - Radiculopathy, site unspecified Status: Acute Assessment and Plan: MRI cervical, thoracic and lumbar spine ordered Continue pain control as above. Continue duloxetine. (7) Fatigue: Qualifiers: Fatigue type: due to neoplasm Qualified Code(s): R53.0 - Neoplastic (malignant) related fatigue Code(s): R53.83 - Other fatigue Status: Acute Assessment and Plan: Secondary to metastatic disease. Plan CODE STATUS: FULL CODE Disposition: plans to go home when medically stable. Time Spent With Patient Time with patient: 25 - 35 minutes Subjective Date/time seen: 06/29/22 09:33 Patient sitting up in the chair eating breakfast. He reports in the past 3 months he has had severe fatigue and lower back pain. He has been taking large doses of ibuprofen frequently for the past few months, as well, that has been ineffective. He reports difficulty urinating since August and was started on Flomax but does not think it is working, so he stopped taking it 3 weeks ago. He sometimes has lower abdominal pressure, but not always. His pain radiates down both legs and he has some paresthesia to lower legs. He reports progressive weakness that is mostly located to both legs and he has had difficulty standing and walking. He also endorses mild pain to his left flank region that is aching and intermittent. He denies numbness or tingling to perineal region. No chest pain or SOB at rest. He denies hematochezia, hernán
[2022-06-29] MEDS: LORazepam INJ (*CRX) 2 MG/ML VIAL 1 MG IV PUSH (11:54)
[2022-06-29] MEDS: SODIUM CHLORIDE 0.9% IV 250 ML 30 ML IV CONT (13:47)
[2022-06-29] MEDS: DEXAMETHASONE 4 MG TABLET PO ×3 (13:47→21:36)
--- NOTE | 2022-06-29 15:29 | WPDURCON ---
Assessment and Plan Assessment and plan (1) Bone lesion: Code(s): M89.9 - Disorder of bone, unspecified Status: Acute Assessment and Plan: Suspected Prostate Cancer with Metastatic Disease. Discussed plan with Dr. Maher and Jeevan today. Will plan to do a prostate biopsy in the OR on Tuesday to get a diagnosis. He will need a fleet enema Tuesday morning and to avoid any anti coagulants. We will then follow up immediately after discharge with the advanced prostate cancer center for ongoing treatment based on diagnosis and staging of prostate cancer. PSA is not elevated to a place that demonstrates the metastatic disease mirrored on the CT scan, we are concerned for other sources of disease for metastasis. Oncology to see for further evaluation. (2) Urinary retention: Code(s): R33.9 - Retention of urine, unspecified Status: Acute Assessment and Plan: PVR >800cc, continue Tamsulosin, start Finasteride. He did void 200cc after his bladder scan, creatinine is normal, but I still recommend a hayward d/t weakness and bladder distention noted on CT. Place hayward catheter, patient is reluctant to do so, if he declines ok to do intermittent catheterization. (3) Normocytic anemia: Code(s): D64.9 - Anemia, unspecified Status: Acute Assessment and Plan: We recommend a consult for GI d/t ongoing use of NSAID's for months to treat joint pain and known anemia for further evaluation. (4) Metastatic disease: Code(s): C79.9 - Secondary malignant neoplasm of unspecified site Status: Acute (5) BPH (benign prostatic hyperplasia): Code(s): N40.0 - Benign prostatic hyperplasia without lower urinary tract symptoms Status: Acute Urology Consult Note HPI Date Seen: 06/29/22 Time Seen: 14:30 Requesting Physician: Flaquito Rodríguez MD Primary Care Provider: Hilario Jade DO Consult Narrative Reason for consult: Elevated PSA with possible metastatic prostate cancer seen on CT scan. Narrative: Mike Sanabria III is a 62 year old male who presented to the ER yesterday with worsening weakness and low back pain, generalized joint pain and difficulty with urination. He was given Ativan d/t having an MRI today and is very lethargic, he is arousable but falls back asleep quickly. His was at the bedside and was able to provide all of his medical history information. She states that in September he began having difficulty urinating, straining, slow stream, frequency and hesitancy. He saw his PCP and had blood work done which was normal, she is unsure if that included a PSA at that time. He was started on Tamsulosin which did slightly improve his symptoms. However, as time went on he began to develop weakness, fatigue and joint pain. He had been seen in the ER two other times for similar symptoms in 02.10 and 05/13 but no scans were done at that time. His PSA at this time on 06/18/22 was 8.7, WBC is 7.7, creatinine was 0.70 and UA is normal and not suspicious of a UTI. He is afebrile, however I did bladder scan him at the bedside and got 817cc PVR. He hadn't urinated in >3 hours according to his , but he wasn't expressing any discomfort when I was scanning and placing pressure on his suprapubic area or the urge to urinate. He is anemic with an H&H of 6.8 and 21.7 and is receiving blood transfusions at this time. His states he has been taking Motrin around the clock for >6 months d/t his joint pain. She denies seeing blood in his stool and he has not had any vomiting or bloody vomit. His CTA reveals Widespread scattered sclerotic lesions of bone, consistent with metastatic disease such as prostate cancer. Left external iliac, mediastinal, and bilateral supraclavicular lymphadenopathy, consistent with metastatic disease.Mild left hydronephrosis and hydroureter. Distended bladder with diffuse wall thickening, which may be seen with chronic outlet obstruction. His states that his father had pros
--- NOTE | 2022-06-29 17:00 | PC.NURSE ---
Unable to cath patient do to meeting resistance. Urology notified.
--- NOTE | 2022-06-29 18:38 | PDONCCN ---
HPI - Date of Consult Date/Time: 06/29/22 18:38 Requesting Physician: Flaquito Rodríguez MD Primary Care Provider: Hilario Jaed, DO - Consult Narrative Reason for consult: Elevated PSA with possible metastatic prostate cancer seen on CT scan. Narrative: Mike Sanabria III is a 62 year old male who denies any previous history of malignancy. According to the patient and the he was told to have prostate enlargement in September of 2021. He developed COVID infection in February 2022 with tiredness and fatigue. He also developed diffuse musculoskeletal discomfort. He was complaining of bilateral lower extremity weakness. Couple of time he felt recently due to lower extremity weakness. He came into the hospital with worsening shortness of breath and bilateral hip pain. CT scan was performed that showed widespread sclerotic lesion of the bone consistent with metastatic disease such as prostate cancer along with left external iliac, mediastinal, bilateral supraclavicular lymphadenopathy as well as distended bladder diffuse wall thickening. Labs showed hemoglobin of 6.6. PSA was slightly elevated at 8.7. Serum protein electrophoresis showed no monoclonal spike. He denies any melena hematochezia. He has been eating poorly. Review of Systems - Review of Systems All systems reviewed & are unremarkable except as noted in HPI and bel - Neurologic Reports system reviewed and no additional complaints, except as documented PMFSH Medical History: Medical History (Last Reviewed 06/29/22 @ 15:39 by Yamileth Wright APRN) Kidney stones Surgical History: Surgical History (Last Reviewed 06/29/22 @ 15:39 by Yamileth Wright APRN) History of tonsillectomy Family History: Family History (Last Reviewed 06/29/22 @ 15:39 by Yamileth Wright APRN) Father Malignant neoplasm of prostate - Social History Social History: Social History (Last Reviewed 06/29/22 @ 15:39 by Yamileth Wright APRN) Alcohol Use: Alcohol intake: former Drinks per week: 7 Alcohol use details: wine Substance Use: Substance use: never Others: Spiritual care concerns: No Smoking Status: Smoking status: Heavy tobacco smoker Tobacco type: cigarettes Second hand tobacco smoke exposure: No Smoking end date: 06/17/22 Smoking Pack-years: Years smoked: 40 Social Determinants of Health: Has the Lack of Transportation Kept You From Medical Appointments or From Getting Medications?: No Within the Past 12 Months, Were You Worried Whether Your Food Would Run Out Before You Got Money to Buy More?: Never True What is Your Housing Situation Today?: I Have Housing Are You Worried That in the Next 2 Months, You May Not Have Your Own Housing to Live In?: No Do You Have Trouble Paying Your Heating Or Electricity Bill?: No Do You Have Trouble Paying For Medicines?: No Are You Currently Unemployed and Looking for Work?: No Highest Level of Education Completed: Master's Degree or Higher Do You Have Trouble With Childcare or the Care of a Family Member?: No Exam - Vital Signs Vital Signs - 24 hr 06/28/22 20:07 06/28/22 20:20 06/28/22 21:13 Temperature 36.5 C Pulse Rate 75 Respiratory Rate 18 18 Blood Pressure 118/67 118/67 Pulse Oximetry 100 99 Oxygen Delivery 06/28/22 19:40 06/28/22 22:00 06/29/22 00:00 Temperature 36.5 C 36.5 C 37.1 C Pulse Rate 72 72 76 Respiratory Rate 18 18 18 Blood Pressure 117/60 117/60 106/54 L Pulse Oximetry 96 96 96 Oxygen Delivery 06/29/22 04:00 06/29/22 07:57 06/29/22 14:00 Temperature 37.3 C 37.0 C 36.8 C Pulse Rate 75 81 66 Respiratory Rate 18 18 16 Blood Pressure 93/68 L 123/60 126/68 Pulse Oximetry 96 96 98 Oxygen Delivery 06/29/22 14:25 06/29/22 08:50 06/29/22 15:25 Temperature 36.3 C L 36.6 C Pulse Rate 67 70 Respiratory Rate 18 16 Blood Pressure 143/87 H 137/87 Pulse Oximetry
[2022-06-29] MEDS: LIDOCAINE HCL 2% GEL UROJET 10 ML PKG MUCOUS MEM (19:21)
[2022-06-30] MEDS: oxyCODONE HCL (*CRX) 5 MG TAB IR PO ×2 (02:56→18:37)
[2022-06-30] MEDS: LORazepam INJ (*CRX) 2 MG/ML VIAL 1 MG IV PUSH (03:05)
[2022-06-30 06:00] VITALS: BP 126/73; PULSE 64; RESP 18; TEMP 36.2; O2SAT 98
[2022-06-30 06:38] LABS: Hematocrit 23.5 % (42.0-52.0); Hemoglobin 7.6 g/dL (14.0-18.0); Mean Corpuscular HGB Conc 32.3 g/dl (32-36); Mean Corpuscular Hemoglobin 30.8 pg (26-34); Mean Corpuscular Volume 95.1 fl (80-100); Mean Platelet Volume 9.9 fl (7.4-10.4); Platelet Count Result 160 k/mm3 (150-375); Red Blood Count 2.47 M/mm3 (4.6-6.20); White Blood Count 8.7 K/mm3 (4.5-10.0)
[2022-06-30 06:53] LABS: Alanine Aminotransferase 24 U/L (6-50); Albumin Level 3.1 g/dL (3.5-5.1); Alkaline Phosphatase 501 U/L (38-126); Anion Gap 11 mmol/L (8-16); Aspartate Amino Transferase 27 U/L (17-59); Bilirubin,Total 0.3 mg/dL (0.2-1.3); Blood Urea Nitrogen 17 mg/dL (9-20); Calcium 8.1 mg/dL (8.4-10.2); Carbon Dioxide 21 mmol/L (22-30); Chloride 102 mmol/L (98-107); Estimated CRCL calculation 123 ml/min; Estimated Glomerular Filt Rate > 60; Glucose 190 mg/dL (65-110); Potassium 4.2 mmol/L (3.4-5.0); Sodium 134 mmol/L (137-145)
[2022-06-30 08:21] LABS: Band Neutrophils Percent 13 % (0-6); Lymphocytes Absolute Manual 0.87 K/mm3 (1.1-4.5); Metamyelocytes Percent 2 %; Monocytes Absolute Manual 0.08 K/mm3 (0.1-0.90); Monocytes Percent Manual 1 % (3-9); Neutrophils Absolute Manual 7.56 K/mm3 (1.3-6.7); Neutrophils Percent Manual 74 % (46-73); Platelet Estimate Adequate (Adequate); Schistocytes None Seen (NORMAL); Total Cells Counted 100
[2022-06-30 08:50] VITALS: O2SAT 98
[2022-06-30 09:00] LABS: INR 1.3; Prothrombin Time 15.6 Seconds (11.1-14.7)
--- NOTE | 2022-06-30 09:31 | WPDMODSED ---
Moderate Sedation Note-Pt Data Patient Data Diagnosis: bone lesions suspicious for metastatic disease Present Complaint: back pain, anemia and elevated PSA Procedure to be performed/Plan: bone marrow biopsy Allergies Allergy/AdvReac Type Severity Reaction Status Date / Time No Known Allergies Allergy Verified 06/28/22 13:59 Home Medications Medication Instructions Recorded Confirmed Type duloxetine 60 mg capsule,delayed 60 mg PO DAILY #30 caps 06/28/22 06/28/22 Rx release Current Medications: Active Medications Acetaminophen (Acetaminophen 325 Mg Tablet) 650 mg PO Q4H PRN PRN Reason: Mild Pain (1-3) or Fever Dexamethasone (Dexamethasone 4 Mg Tablet) 4 mg PO QID [facility] Last Admin: 06/29/22 21:36 Dose: 4 mg Duloxetine HCl (Duloxetine Hcl 60 Mg Capsule.Dr) 60 mg PO DAILY [facility] Last Admin: 06/29/22 08:52 Dose: 60 mg Finasteride (Finasteride 5 Mg Tablet) 5 mg PO QAM [facility] Hydromorphone HCl (Hydromorphone Hcl Inj (*Crx) 1 Mg/Ml Syr) 1 mg IV PUSH Q2HR PRN PRN Reason: Breakthrough Pain Last Admin: 06/29/22 08:49 Dose: 1 mg Neomycin/Polymyxin/Bacitracin (Neomycin/Polymyxin/Bacitracin Ointment 15 Gm Tube) 1 applic TOPICAL PRN PRN PRN Reason: with dressing changes Ondansetron HCl (Ondansetron Inj 4 Mg/2 Ml Vial) 4 mg IV PUSH Q4H PRN PRN Reason: Nausea Oxycodone HCl (Oxycodone Hcl (*Crx) 5 Mg Tab Ir) 5 mg PO Q4H PRN PRN Reason: Pain Rated 6 or Greater Last Admin: 06/30/22 02:56 Dose: 5 mg Pantoprazole Sodium (Pantoprazole Sodium Iv 40 Mg Vial) 40 mg IV PUSH Q12HR [facility] Last Admin: 06/29/22 21:36 Dose: 40 mg Tamsulosin HCl (Tamsulosin Hcl 0.4 Mg Capsule) 0.4 mg PO QAM [facility] Last Admin: 06/29/22 08:52 Dose: 0.4 mg Sedation/Anesthesia: No previous sedation/anesthesia problems (including family history). [facility] Past Medical History Medical History Kidney stones Surgical History Surgical History History of tonsillectomy Family History Family History Father Malignant neoplasm of prostate Social History Social History Social History: Surrogate medical decision maker: Glory Sharpin, spouse. Code status: Full code. Years smoked: 40 Smoking status: Heavy tobacco smoker Tobacco type: cigarettes Second hand tobacco smoke exposure: No Smoking end date: 06/17/22 Alcohol intake: former Drinks per week: 7 Alcohol use details: wine Substance use: never Lack of Transportation: No Lack of Food: Never True Current Housing: I Have Housing Concerned About Future Housing: No Difficulty Paying Gas/Electric Bills: No Difficulty Paying for Meds: No Currently Unemployed: No Education: Master's Degree or Higher Difficulty w/ Childcare or Family Care: No Spiritual care concerns: No Mod Sed Physical Exam Physical Exam Pre Procedural Exam: Normal: Appearance, Throat, Lungs and Abdomen Hours since solid foods: 8 Hours since liquid intake: 8 Mallampati Classification: class II Internal Medicine - PN: Obj Da Vital Signs Vital Signs: Vital Signs - 24 hr 06/29/22 14:00 06/29/22 14:25 06/29/22 15:25 Temperature 98.2 F 97.4 F L 97.9 F Pulse Rate 66 67 70 Respiratory Rate 16 18 16 Blood Pressure 126/68 143/87 H 137/87 Pulse Oximetry 98 99 100 Oxygen Delivery 06/29/22 16:25 06/29/22 17:25 06/29/22 17:55 Temperature 97.5 F L 97.2 F L 98.2 F Pulse Rate 75 75 74 Respiratory Rate 16 16 16 Blood Pressure 133/81 135/68 122/64 Pulse Oximetry 97 94 94 Oxygen Delivery 06/29/22 20:00 06/30/22 06:00 06/30/22 08:50 Temperature 98.0 F 97.2 F L Pulse Rate 64 64 Respiratory Rate 18 18 Blood Pressure 121/70 126/73 Pulse Oximetry 97 98 98 Oxygen Delivery Room Air Intake/Output Intake/Output: Intake &
--- NOTE | 2022-06-30 10:20 | SUR.PHASEII ---
bedside hand off done with 3 med/animal surgeon Lauren. Wound check done. at bedside. She was given post care instructions. She was advised if she has not heard about bone marrow biopsy results from anyone within 10 days to contact oncology Dr. Rivera's office. They verbalized understanding. Patient was awake and alert and VSS at end of case.
[2022-06-30] MEDS: DULoxetine HCL 60 MG CAPSULE.DR PO (10:44)
[2022-06-30] MEDS: PANTOPRAZOLE SODIUM IV 40 MG VIAL IV PUSH ×2 (10:44→20:59)
[2022-06-30] MEDS: TAMSULOSIN HCL 0.4 MG CAPSULE PO (10:45)
[2022-06-30] MEDS: DEXAMETHASONE 4 MG TABLET PO ×4 (10:45→20:59)
--- NOTE | 2022-06-30 10:48 | WPDNEUROSGCN ---
Assessment and Plan Assessment and plan (1) Metastatic disease: Qualifiers: Area of secondary neoplastic involvement: unspecified site Qualified Code(s): C79.9 - Secondary malignant neoplasm of unspecified site Code(s): C79.9 - Secondary malignant neoplasm of unspecified site Status: Acute Plan Mike is a 6-year-old gentleman with apparent metastatic disease throughout his visualized spine but without any specific neurologic compression to account for weakness or pain in his lower extremities. No surgical intervention is necessary and diagnosis of this problem and most likely be made without neurosurgical intervention. Multiple myeloma is a diagnostic consideration as well as prostate cancer and that evaluation is currently taking place. Possible for neurosurgical intervention, should his prognosis be good enough, would be for consideration of pain management at [facility] such as spinal cord stimulators or intrathecal pain pump. I doubt this will be useful. Review of Systems Review of Systems: Patient denies shortness of breath, cough, fever, chills, weight gain, weight loss, chest pain. he has left lower extremity swelling and malaise as well as diffuse weakness including the lower extremities. He has diffuse musculoskeletal discomfort most particularly in the hips bilaterally. His review of systems is otherwise negative except as noted elsewhere. The locking when no his PMFSH Past Medical History Medical History Kidney stones Surgical History Surgical History History of tonsillectomy Family History Family History Father Malignant neoplasm of prostate Social History Social History Social History: Surrogate medical decision maker: Glory Sanabria, spouse. Code status: Full code. Years smoked: 40 Smoking status: Heavy tobacco smoker Tobacco type: cigarettes Second hand tobacco smoke exposure: No Smoking end date: 06/17/22 Alcohol intake: former Drinks per week: 7 Alcohol use details: wine Substance use: never Lack of Transportation: No Lack of Food: Never True Current Housing: I Have Housing Concerned About Future Housing: No Difficulty Paying Gas/Electric Bills: No Difficulty Paying for Meds: No Currently Unemployed: No Education: Master's Degree or Higher Difficulty w/ Childcare or Family Care: No Spiritual care concerns: No Meds Home Medications and Allergies Home Medications Medication Instructions Recorded Confirmed Type duloxetine 60 mg capsule,delayed 60 mg PO DAILY #30 caps 06/28/22 06/28/22 Rx release Allergies Allergy/AdvReac Type Severity Reaction Status Date / Time No Known Allergies Allergy Verified 06/28/22 13:59 Vital Signs Vital Signs - 24 hr 06/29/22 14:00 06/29/22 14:25 06/29/22 15:25 Temperature 98.2 F 97.4 F L 97.9 F Pulse Rate 66 67 70 Respiratory Rate 16 18 16 Blood Pressure 126/68 143/87 H 137/87 Pulse Oximetry 98 99 100 Oxygen Delivery 06/29/22 16:25 06/29/22 17:25 06/29/22 17:55 Temperature 97.5 F L 97.2 F L 98.2 F Pulse Rate 75 75 74 Respiratory Rate 16 16 16 Blood Pressure 133/81 135/68 122/64 Pulse Oximetry 97 94 94 Oxygen Delivery 06/29/22 20:00 06/30/22 06:00 06/30/22 08:50 Temperature 98.0 F 97.2 F L Pulse Rate 64 64 Respiratory Rate 18 18 Blood Pressure 121/70 126/73 Pulse Oximetry 97 98 98 Oxygen Delivery Room Air Exam Neuro: Other: Patient is a normally developed, normal appearing male supine in hospital bed slightly sedated but in no acute distress. He is uncomfortable appearing. His face is symmetrical, tongue is midline, is pupils are equal reactive to light his extraocular movements are intact without diplopia or nystagmus.
[2022-06-30 11:34] VITALS: BP 139/75; PULSE 72; RESP 18; TEMP 36.6; O2SAT 100
[2022-06-30] MEDS: FINASTERIDE 5 MG TABLET PO (12:00)
[2022-06-30] MEDS: NICOTINE (*PBKC) 2 MG GUM PO (12:52)
--- NOTE | 2022-06-30 15:27 | WPDUROPN2 ---
Progress Note: A&P Assessment and Plan (1) BPH (benign prostatic hyperplasia): Code(s): N40.0 - Benign prostatic hyperplasia without lower urinary tract symptoms Status: Acute Assessment and Plan: Continue Finasteride and Tamsulosin. (2) Bone lesion: Code(s): M89.9 - Disorder of bone, unspecified Status: Acute (3) Urinary retention: Code(s): R33.9 - Retention of urine, unspecified Status: Acute Assessment and Plan: Continue intermittent bladder scans, if he is comfortable, voiding and PVR remains reasonable around 600cc, he doesn't need a hayward placement. He understands that if it becomes difficult to urinate or he is dribbling/stops completely, we will need to come and place a hayward since he is a difficult cath. He agrees to this plann. (4) Metastatic disease: Qualifiers: Area of secondary neoplastic involvement: unspecified site Qualified Code(s): C79.9 - Secondary malignant neoplasm of unspecified site Code(s): C79.9 - Secondary malignant neoplasm of unspecified site Status: Acute Assessment and Plan: Prostate Cancer versus Multiple Myeloma, bone biopsy pending. Per Dr. Rivera's recommendation, if bone biopsy is positive showing metatstatic disease originating from the bone marrow, a prostate biopsy may not be needed. Dr. Maher has been notified of this and we will be on standby about his biopsy Tuesday pending results of biopsy. Subjective Subjective Date/Time Seen: 06/30/22 15:27 Patient continues to have difficulty emptying his bladder, however he is urinating about 200cc per void. His bladder scans remain >400cc, but he isn't uncomfortable and states his frequency of urination has improved quite a bit. Tamsulosin has been continued since September 2021 and I added Finasteride yesterday, which he understands may take months to take effect on his enlarged prostate. The nursing staff attempted to place a hayward last night multiple times but met resistance and were unable to cath him. He has had a bone marrow biopsy per Dr. Rivera's request for suspected multiple myeloma and he was seen by neurosurgery d/t concern of metastasis to the spine. H&H remains low but improved s/p blood transfusion, creatinine is normal and WBC is normal. Review of Systems Cardiovascular: Cardiovascular: Denies chest pain Respiratory: Respiratory: Reports no additional respiratory complaints Gastrointestinal: Gastrointestinal: Denies abdominal pain, Denies nausea and Denies vomiting Genitourinary: Genitourinary: Denies hematuria, Denies dysuria, Denies flank pain, Denies urinary frequency, Denies urinary hesitancy, Denies urinary incontinence and Denies urinary urgency Exam Const: General: cooperative, lethargic, tired appearing and thin Resp: Effort & Inspection: normal respiratory effort Cardio: Rate: regular rate GI: GI Palp: Yes Soft to palpation and No Tenderness to palpation present (GI) : General: Yes no CVA tenderness Extrem: Right lower extremity: no edema Left lower extremity: no edema Objective Data Vital Signs Vital Signs: Vital Signs - 24 hr 06/29/22 16:25 06/29/22 17:25 06/29/22 17:55 Temperature 97.5 F L 97.2 F L 98.2 F Pulse Rate 75 75 74 Respiratory Rate 16 16 16 Blood Pressure 133/81 135/68 122/64 Pulse Oximetry 97 94 94 Oxygen Delivery 06/29/22 20:00 06/30/22 06:00 06/30/22 08:50 Temperature 98.0 F 97.2 F L Pulse Rate 64 64 Respiratory Rate 18 18 Blood Pressure 121/70 126/73 Pulse Oximetry 97 98 98 Oxygen Delivery Room Air 06/30/22 11:34 06/30/22 08:35 Temperature 97.9 F Pulse Rate 72 Respiratory Rate 18 Blood Pressure 139/75 Pulse Oximetry 100 Oxygen Delivery Room Air Intake/Output Intake/Output: Intake & Output 06/27/22 06/28/22 06/29/22 06/30/22 23:59 23:59 23:59 23:59 Intake Total 3001 237 Output Total 1080 250 Balance 1920 Meds/Results Medications: Active Medic
[2022-06-30 15:43] VITALS: BP 126/67; PULSE 76; RESP 18; TEMP 36.9; O2SAT 100
--- NOTE | 2022-06-30 16:00 | PM.IMPN ---
Progress Note: A&P Assessment and Plan (1) Generalized weakness: Code(s): R53.1 - Weakness Status: Acute Assessment and Plan: c/o generalized fatigue. BLE leg weakness with radiating pain down both legs. Neurosurgery consulted d/t complaints. L spine -1. Widespread bone lesions, consistent with metastatic disease. 2. Moderate lumbar spondylosis. 3. Mild left hydronephrosis T spine 1. Widespread bone lesions, consistent with metastatic disease. 2. Mild thoracic spondylosis. (2) Normocytic anemia: Code(s): D64.9 - Anemia, unspecified Status: Acute Assessment and Plan: Taking ibuprofen 800 mg Q2 hours for several weeks prior to admission Hgb 6.8 and 1 unit PRBC ordered. Hemoglobin was 9.7 on 06/07/22. Pt hb is 7 pt seen by oncology continue to monitor hb may benefit from blood transfusion again if hb drops below 7 Pt is on Protonix 40 mg IV BID pt already had blood transfusion on admission (3) Urinary retention: Code(s): R33.9 - Retention of urine, unspecified Status: Acute Assessment and Plan: Started on flomax and has been taking up until 3 weeks ago and had no noticeable improvement in frequency. CT Abd/pelvis with bladder distention, bladder wall thickening and left hyrdonephrosis and hyroureter. Urology consulted. PSA mildly elevated 8.4 06/18/22 Pt to have prostate biopsy on Tuesday (4) Bone pain: Code(s): M89.8X9 - Other specified disorders of bone, unspecified site Status: Acute Assessment and Plan: Lower back pain, severe, for approximately 4 months with lumbar radiculopathy, urinary retention noted on CT, metastatic disease with scattered bony lesions on CT as well. Pt had MRI T and L spine Oxycodone IR 5 mg Q4 hours with Diluadid 0.5 mg IV Q2 hours for breakthrough pain. (5) Metastatic disease: Qualifiers: Area of secondary neoplastic involvement: unspecified site Qualified Code(s): C79.9 - Secondary malignant neoplasm of unspecified site Code(s): C79.9 - Secondary malignant neoplasm of unspecified site Status: Acute Assessment and Plan: Patient with scattered sclerotic bone lesions, and lymphadenopathy to bilateral supraclavicular, left external iliac and mediastinal regions consistent with metastatic disease. Oncology consulted. Pt having bone marrow biopsy today and prostate biopsy in tuesday (6) Radiculopathy: Qualifiers: Spinal region: lumbosacral Qualified Code(s): M54.17 - Radiculopathy, lumbosacral region Code(s): M54.10 - Radiculopathy, site unspecified Status: Acute Assessment and Plan: MRI cervical, thoracic and lumbar spine ordered Continue duloxetine. Steroids, hydromorphone prn, oxycodone (7) Fatigue: Qualifiers: Fatigue type: due to neoplasm Qualified Code(s): R53.0 - Neoplastic (malignant) related fatigue Code(s): R53.83 - Other fatigue Status: Acute Assessment and Plan: Secondary to metastatic disease. Plan CODE STATUS: FULL CODE Disposition: plans to go home when medically stable. Subjective Date/time seen: 06/30/22 16:00 62-year-old male who presented to the emergency department from home for evaluation of back pain and increasing weakness. He developed ?all-over pain? about 3 months ago with daily episodes of headache, neck pain, low back discomfort, and hip pain. He was seen by his doctor and they thought perhaps he had fibromyalgia and he was started on duloxetine which helped his headache and neck pain however he continues to have increasing low back and hip pain. He has been taking Advil and acetaminophen every 2 to 3 hours to help keep the pain at bay with lesser and lesser benefit. He has also had pretty consistent nausea and he has lost 15 pounds in the last month or so. This prompted a workup by his primary doctor and is noted that he had a negative rheumatoid factor, positive GABRIELLE wit
[2022-06-30] MEDS: ALPRAZolam (*CRX) 0.25 MG TABLET PO (16:48)
[2022-06-30 20:00] VITALS: BP 118/62; PULSE 66; RESP 18; TEMP 36.6; O2SAT 97
[2022-07-01] MEDS: oxyCODONE HCL (*CRX) 5 MG TAB IR PO ×2 (03:35→17:46)
[2022-07-01 06:00] VITALS: BP 109/66; PULSE 65; RESP 18; TEMP 36.2; O2SAT 98
[2022-07-01 07:02] LABS: Alanine Aminotransferase 32 U/L (6-50); Albumin Level 3.1 g/dL (3.5-5.1); Alkaline Phosphatase 437 U/L (38-126); Anion Gap 12 mmol/L (8-16); Aspartate Amino Transferase 33 U/L (17-59); Bilirubin,Total 0.2 mg/dL (0.2-1.3); Blood Urea Nitrogen 20 mg/dL (9-20); Calcium 7.9 mg/dL (8.4-10.2); Carbon Dioxide 21 mmol/L (22-30); Chloride 103 mmol/L (98-107); Estimated CRCL calculation 105 ml/min; Estimated Glomerular Filt Rate > 60; Glucose 135 mg/dL (65-110); Potassium 4.1 mmol/L (3.4-5.0); Sodium 136 mmol/L (137-145)
[2022-07-01 07:14] LABS: Hematocrit 22.9 % (42.0-52.0); Hemoglobin 7.4 g/dL (14.0-18.0); Mean Corpuscular HGB Conc 32.3 g/dl (32-36); Mean Corpuscular Hemoglobin 30.5 pg (26-34); Mean Corpuscular Volume 94.2 fl (80-100); Mean Platelet Volume 9.9 fl (7.4-10.4); Platelet Count Result 155 k/mm3 (150-375); Red Blood Count 2.43 M/mm3 (4.6-6.20); White Blood Count 9.4 K/mm3 (4.5-10.0)
[2022-07-01] MEDS: TAMSULOSIN HCL 0.4 MG CAPSULE PO (08:17)
[2022-07-01] MEDS: DEXAMETHASONE 4 MG TABLET PO ×4 (08:17→20:53)
[2022-07-01] MEDS: FINASTERIDE 5 MG TABLET PO (08:17)
[2022-07-01] MEDS: PANTOPRAZOLE SODIUM IV 40 MG VIAL IV PUSH ×2 (08:17→20:53)
[2022-07-01] MEDS: DULoxetine HCL 60 MG CAPSULE.DR PO (08:17)
[2022-07-01 09:38] LABS: Band Neutrophils Percent 15 % (0-6); Lymphocytes Absolute Manual 0.75 K/mm3 (1.1-4.5); Metamyelocytes Percent 3 %; Monocytes Absolute Manual 0.47 K/mm3 (0.1-0.90); Monocytes Percent Manual 5 % (3-9); Myelocytes Percent 2 %; Neutrophils Percent Manual 67 % (46-73); Total Cells Counted 100
[2022-07-01 09:39] LABS: Hypochromasia 1+ (NORMAL); Microcytosis 1+ (NORMAL); Ovalocytes 1+ (NORMAL); Platelet Estimate Adequate (Adequate); Schistocytes None Seen (NORMAL)
--- NOTE | 2022-07-01 11:47 | PM.IMPN ---
Progress Note: A&P Assessment and Plan (1) Generalized weakness: Code(s): R53.1 - Weakness Status: Acute Assessment and Plan: c/o generalized fatigue. BLE leg weakness with radiating pain down both legs. Neurosurgery consulted d/t complaints. L spine -1. Widespread bone lesions, consistent with metastatic disease. 2. Moderate lumbar spondylosis. 3. Mild left hydronephrosis T spine 1. Widespread bone lesions, consistent with metastatic disease. 2. Mild thoracic spondylosis. patient underwent bone marrow biopsy. Results pending (2) Normocytic anemia: Code(s): D64.9 - Anemia, unspecified Status: Acute Assessment and Plan: continue to monitor hb may benefit from blood transfusion again if hb drops below 7 Pt is on Protonix 40 mg IV BID pt already had blood transfusion on admission (3) Urinary retention: Code(s): R33.9 - Retention of urine, unspecified Status: Acute Assessment and Plan: Started on flomax and has been taking up until 3 weeks ago and had no noticeable improvement in frequency. CT Abd/pelvis with bladder distention, bladder wall thickening and left hyrdonephrosis and hyroureter. Urology consulted. PSA mildly elevated 8.4 06/18/22 Pt to have prostate biopsy on Tuesday (4) Bone pain: Code(s): M89.8X9 - Other specified disorders of bone, unspecified site Status: Acute Assessment and Plan: Lower back pain, severe, for approximately 4 months with lumbar radiculopathy, urinary retention noted on CT, metastatic disease with scattered bony lesions on CT as well. Pt had MRI T and L spine Oxycodone IR 5 mg Q4 hours with Diluadid 0.5 mg IV Q2 hours for breakthrough pain. (5) Metastatic disease: Qualifiers: Area of secondary neoplastic involvement: unspecified site Qualified Code(s): C79.9 - Secondary malignant neoplasm of unspecified site Code(s): C79.9 - Secondary malignant neoplasm of unspecified site Status: Acute Assessment and Plan: Patient with scattered sclerotic bone lesions, and lymphadenopathy to bilateral supraclavicular, left external iliac and mediastinal regions consistent with metastatic disease. Oncology consulted. bone marrow biopsy done. prostate biopsy on tuesday Plan CODE STATUS: FULL CODE Disposition: plans to go home when medically stable. Subjective Date/time seen: 07/01/22 11:47 patient reports his pain is controlled with the current pain regimen Review of Systems Review of Systems: Anxiety worried Exam Narrative: General: Tired Respiratory: Lungs are clear to auscultation bilaterally. Cardiovascular: Regular rate and rhythm with S1-S2. No murmur, gallop or rub. Gastrointestinal: Abdomen is soft, round and tender suprapubic region. with positive bowel sounds. No guarding. Skin: Warm and dry. Generalized pallor. No open wounds or rashes. Extremities: No cyanosis or clubbing. No edema. Peripheral pulses intact. Neurological: Alert and oriented times 4. No facial asymmetry. Legs generalized weakness Psychiatric: Pleasant and cooperative with normal mood and affect. Objective Data Vital Signs Vital Signs: Vital Signs - 24 hr 06/30/22 15:43 06/30/22 20:00 07/01/22 06:00 Temperature 98.4 F 97.9 F 97.1 F L Pulse Rate 76 66 65 Respiratory Rate 18 18 18 Blood Pressure 126/67 118/62 109/66 Pulse Oximetry 100 97 98 Oxygen Delivery 07/01/22 08:00 Temperature Pulse Rate Respiratory Rate Blood Pressure Pulse Oximetry Oxygen Delivery Room Air Intake/Output Intake/Output: Intake & Output 06/28/22 06/29/22 06/30/22 07/01/22 23:59 23:59 23:59 23:59 Intake Total 3001 / 3001 1097 / 1097 Output Total 1080 / 1080 250 / 250 0 / 0 Balance 1921 / 1921 847 / 847 0 / 0 Meds/Results Medications: Active Medications Generic Name Dose Route Start Last Admin Trade Name Freq PRN Reason Stop Dose Admin Acetam
[2022-07-01 14:00] VITALS: BP 123/61; PULSE 65; RESP 22; TEMP 35.2; O2SAT 97
--- NOTE | 2022-07-01 16:22 | WPDGICN ---
Assessment and Plan Assessment and plan (1) Acute anemia: Code(s): D64.9 - Anemia, unspecified Status: Acute Assessment and Plan: probably is from metastatic disease, no signs of overt gib hem-onc on board, pending bm biopsy (2) Bone lesion: Code(s): M89.9 - Disorder of bone, unspecified Status: Acute Assessment and Plan: reviewed findings oncology on board, pending bx (3) Generalized weakness: Code(s): R53.1 - Weakness Status: Acute Assessment and Plan: from anemia and metastatic disease (4) Metastatic disease: Qualifiers: Area of secondary neoplastic involvement: unspecified site Qualified Code(s): C79.9 - Secondary malignant neoplasm of unspecified site Code(s): C79.9 - Secondary malignant neoplasm of unspecified site Status: Acute (5) Prostate cancer: Code(s): C61 - Malignant neoplasm of prostate Status: Acute GI Consult Note Consult date/time: 07/01/22 16:22 Reason for consult: acute anemia HPI: Mike Sanabria III is a 62 year old male with no major medical problem here after had progressive tiredness and fatigue since last few months and with diffuse musculoskeletal discomfort with legs, hips and lower back, also worsening dyspnea on exertion. CT scan reviewed and showed widespread sclerotic lesion of the bone consistent with metastatic disease such as prostate cancer along with left external iliac, mediastinal, bilateral supraclavicular lymphadenopathy as well as distended bladder diffuse wall thickening.? Labs showed hemoglobin of 6.6, denies overt gib. He says that had cologuard in September and normal, denies melena.? PSA was slightly elevated at 8.7.? Serum protein electrophoresis showed no monoclonal spike. Review of Systems Constitutional: Constitutional: Reports lethargy Eyes: Eyes: Denies blurry vision ENT: Reports Normal hearing present Cardiovascular: Cardiovascular: Denies chest pain Respiratory: Respiratory: Reports no additional respiratory complaints Gastrointestinal: Gastrointestinal: Denies abdominal pain, Denies nausea and Denies vomiting Genitourinary: Genitourinary: Denies hematuria, Denies dysuria, Denies flank pain and Denies urinary hesitancy Musculoskeletal: Musculoskeletal: Reports back pain and Reports arthralgias Integumentary/Breasts: Skin/Breast: Denies rash Neurologic: Denies Abnormal speech present Psychiatric: Psychiatric: Denies anxiety PMFSH Past Medical History Medical History (Updated 07/01/22 @ 16:27 by Graham Giordano MD) Acute anemia Kidney stones Prostate cancer Surgical History Surgical History History of tonsillectomy Family History Family History Father Malignant neoplasm of prostate Social History Social History Social History: Surrogate medical decision maker: Glory Sanabria, spouse. Code status: Full code. Smoking packs per day: 0.5 Smoking cigarettes per day: 10.0 Years smoked: 30 Smoking pack-years: 15.00 Smoking status: Current every day smoker Tobacco type: cigarettes Second hand tobacco smoke exposure: No Smoking end date: 06/17/22 Alcohol intake: former Drinks per week: 7 Alcohol use details: wine Substance use: never Lack of Transportation: No Lack of Food: Never True Current Housing: I Have Housing Concerned About Future Housing: No Difficulty Paying Gas/Electric Bills: No Difficulty Paying for Meds: No Currently Unemployed: No Education: Master's Degree or Higher Difficulty w/ Childcare or Family Care: No Spiritual care concerns: No Meds Home Medications and Allergies Home Medications Medication Instructions Recorded Confirmed Type duloxetine 60 mg capsule,delayed 60 mg PO DAILY #30 caps
--- NOTE | 2022-07-01 16:48 | WPDUROPN2 ---
Progress Note: A&P Assessment and Plan (1) Abnormal PSA: Code(s): R97.20 - Elevated prostate specific antigen [PSA] Status: Acute Assessment and Plan: Plans for prostate ultrasound and biopsy discussed with patient and his at length. Subjective Subjective Date/Time Seen: 07/01/22 16:48 Comfortable, no complaints Review of Systems Cardiovascular: Cardiovascular: Denies chest pain, Denies lightheadedness, Denies palpitations and Denies dyspnea Respiratory: Respiratory: Denies dyspnea Gastrointestinal: Gastrointestinal: Denies diarrhea, Denies nausea and Denies vomiting Genitourinary: Genitourinary: Denies hematuria and Denies dysuria Endocrine: Endocrine: Denies palpitations Exam Const: General: no acute distress Resp: Effort & Inspection: normal respiratory effort GI: Inspection: non-distended GI Palp: No abdominal tenderness and No Guarding due to palpation present (GI) Auscultation: normal bowel sounds Objective Data Vital Signs Vital Signs: Vital Signs - 24 hr 06/30/22 20:00 07/01/22 06:00 07/01/22 08:00 Temperature 97.9 F 97.1 F L Pulse Rate 66 65 Respiratory Rate 18 18 Blood Pressure 118/62 109/66 Pulse Oximetry 97 98 Oxygen Delivery Room Air Intake/Output Intake/Output: Intake & Output 06/28/22 06/29/22 06/30/22 07/01/22 23:59 23:59 23:59 23:59 Intake Total 3001 1097 600 Output Total 1080 250 0 Balance 1921 847 600 Meds/Results Medications: Active Medications Generic Name Dose Route Start Last Admin Trade Name Freq PRN Reason Stop Dose Admin Acetaminophen 650 mg 06/28/22 17:24 Acetaminophen 325 Mg Tablet PO Q4H PRN Mild Pain (1-3) or Fever Alprazolam 0.25 mg 06/30/22 16:18 06/30/22 16:48 Alprazolam (*Crx) 0.25 Mg Tablet PO 0.25 mg TID PRN Administration Anxiety Dexamethasone 4 mg 06/29/22 13:00 07/01/22 16:13 Dexamethasone 4 Mg Tablet PO 4 mg QID DENILSON Administration Duloxetine HCl 60 mg 06/29/22 09:00 07/01/22 08:17 Duloxetine Hcl 60 Mg Capsule.Dr PO 60 mg DAILY DENILSON Administration Finasteride 5 mg 06/30/22 09:00 07/01/22 08:17 Finasteride 5 Mg Tablet PO 5 mg QAM DENILSON Administration Hydromorphone HCl 1 mg 06/29/22 08:15 06/29/22 08:49 Hydromorphone Hcl Inj (*Crx) 1 Mg/Ml Syr IV PUSH 1 mg Q2HR PRN Administration Breakthrough Pain Neomycin/Polymyxin/Bacitracin 1 applic 06/29/22 18:38 Neomycin/Polymyxin/Bacitracin Ointment 15 Gm Tube TOPICAL PRN PRN with dressing changes Nicotine 1 patch 07/01/22 09:00 07/01/22 08:24 Nicotine (*Pbkc) 21 Mg Patch TRANSDERM Not Given QAM DENILSON Nicotine Polacrilex 2 mg 06/30/22 12:44 06/30/22 12:52 Nicotine (*Pbkc) 2 Mg Gum PO 2 mg PRN PRN Administration Nicotine Cravings Ondansetron HCl 4 mg 06/28/22 17:24 Ondansetron Inj 4 Mg/2 Ml Vial IV PUSH Q4H PRN Nausea Oxycodone HCl 5 mg 06/29/22 08:09 07/01/22 03:35 Oxycodone Hcl (*Crx) 5 Mg Tab Ir PO 5 mg Q4H PRN Administration Pain Rated 6 or Greater Pantoprazole Sodium 40 mg 06/29/22 09:00 07/01/22 08:17 Pantoprazole Sodium Iv 40 Mg Vial IV PUSH 40 mg Q12HR DENILSON Administration Tamsulosin HCl 0.4 mg 06/29/22 09:00 07/01/22 08:17 Tamsulosin Hcl 0.4 Mg Capsule PO 0.4 mg QAM DENILSON Administration Radiology Results: ITS Impressions Venous Doppler Study 06/28/22 16:10 IMPRESSION: 1. Patent bilateral lower extremity veins. No evidence of deep venous thrombosis. Chest/Abdomen/Pelvis CTA 06/28/22 16:20 IMPRESSION: 1. Widespread scattered sclerotic lesions of bone, consistent with metastatic disease such as prostate cancer. 2. Left external iliac, mediastinal, and bilateral supraclavicular lymphadenopathy, consistent with metastatic disease. 3. Mild left hydronephrosis and hydroureter. 4. Distended bladder with diffuse wall thickening, which may be seen with chronic outlet obs
[2022-07-01 20:00] VITALS: BP 135/75; PULSE 63; RESP 16; TEMP 36.4; O2SAT 98
[2022-07-02] VITALS: BP 130/80; PULSE 70; RESP 18; TEMP 36.6; O2SAT 96
[2022-07-02 04:00] VITALS: BP 149/91; PULSE 117; RESP 18; TEMP 36.6; O2SAT 96
[2022-07-02] MEDS: ALPRAZolam (*CRX) 0.25 MG TABLET PO (05:38)
[2022-07-02] MEDS: NICOTINE (*PBKC) 2 MG GUM PO (05:41)
[2022-07-02 06:32] LABS: Hematocrit 25.5 % (42.0-52.0); Hemoglobin 8.4 g/dL (14.0-18.0); Mean Corpuscular HGB Conc 32.9 g/dl (32-36); Mean Corpuscular Hemoglobin 31.1 pg (26-34); Mean Corpuscular Volume 94.4 fl (80-100); Mean Platelet Volume 9.9 fl (7.4-10.4); Platelet Count Result 170 k/mm3 (150-375); Red Cell Distribution Width 15.1 % (11.5-14.5); White Blood Count 10.1 K/mm3 (4.5-10.0)
[2022-07-02 06:53] LABS: Alanine Aminotransferase 39 U/L (6-50); Albumin Level 3.6 g/dL (3.5-5.1); Alkaline Phosphatase 496 U/L (38-126); Anion Gap 11 mmol/L (8-16); Aspartate Amino Transferase 32 U/L (17-59); Bilirubin,Total 0.4 mg/dL (0.2-1.3); Blood Urea Nitrogen 23 mg/dL (9-20); Calcium 8.3 mg/dL (8.4-10.2); Carbon Dioxide 22 mmol/L (22-30); Chloride 104 mmol/L (98-107); Estimated CRCL calculation 105 ml/min; Estimated Glomerular Filt Rate > 60; Glucose 123 mg/dL (65-110); Potassium 4.2 mmol/L (3.4-5.0); Sodium 137 mmol/L (137-145)
--- NOTE | 2022-07-02 06:56 | WPDHPUPDATE1 ---
History and Physical Update Update Date/Time: 07/02/22 06:56 History and Physical has been reviewed, including an updated exam of the patient. There are NO changes in the patient's condition. Risks, benefits, and alternatives have been discussed and questions answered. Patient agrees to proceed with procedure.
[2022-07-02 08:00] VITALS: BP 135/73; PULSE 58; RESP 14; TEMP 36.6; O2SAT 100
[2022-07-02 08:46] LABS: Band Neutrophils Percent 12 % (0-6); Basophils Percent Manual 1 % (0-1); Hypochromasia 1+ (NORMAL); Lymphocytes Absolute Manual 1.41 K/mm3 (1.1-4.5); Metamyelocytes Percent 3 %; Monocytes Percent Manual 6 % (3-9); Neutrophils Absolute Manual 7.67 K/mm3 (1.3-6.7); Neutrophils Percent Manual 64 % (46-73); Platelet Estimate Adequate (Adequate); Schistocytes None Seen (NORMAL); Total Cells Counted 100
--- NOTE | 2022-07-02 11:16 | PM.DS ---
DS: Admitting Diagnosis Discharge Date 07/02/2022 Admitting Diagnosis Elevated PSA DS: Discharge Diagnosis Discharge Diagnosis (1) Generalized weakness: Code(s): R53.1 - Weakness Status: Acute Assessment and Plan: c/o generalized fatigue. BLE leg weakness with radiating pain down both legs. Neurosurgery consulted d/t complaints. L spine -1. Widespread bone lesions, consistent with metastatic disease. 2. Moderate lumbar spondylosis. 3. Mild left hydronephrosis T spine 1. Widespread bone lesions, consistent with metastatic disease. 2. Mild thoracic spondylosis. patient underwent bone marrow biopsy. Results pending (2) Normocytic anemia: Code(s): D64.9 - Anemia, unspecified Status: Acute Assessment and Plan: continue to monitor hb may benefit from blood transfusion again if hb drops below 7 Pt is on Protonix 40 mg IV BID pt already had blood transfusion on admission (3) Urinary retention: Code(s): R33.9 - Retention of urine, unspecified Status: Acute Assessment and Plan: Started on flomax and has been taking up until 3 weeks ago and had no noticeable improvement in frequency. CT Abd/pelvis with bladder distention, bladder wall thickening and left hyrdonephrosis and hyroureter. Urology consulted. PSA mildly elevated 8.4 06/18/22 Pt to have prostate biopsy on Tuesday (4) Bone pain: Code(s): M89.8X9 - Other specified disorders of bone, unspecified site Status: Acute Assessment and Plan: Lower back pain, severe, for approximately 4 months with lumbar radiculopathy, urinary retention noted on CT, metastatic disease with scattered bony lesions on CT as well. Pt had MRI T and L spine Oxycodone IR 5 mg Q4 hours with Diluadid 0.5 mg IV Q2 hours for breakthrough pain. (5) Metastatic disease: Qualifiers: Area of secondary neoplastic involvement: unspecified site Qualified Code(s): C79.9 - Secondary malignant neoplasm of unspecified site Code(s): C79.9 - Secondary malignant neoplasm of unspecified site Status: Acute Assessment and Plan: Patient with scattered sclerotic bone lesions, and lymphadenopathy to bilateral supraclavicular, left external iliac and mediastinal regions consistent with metastatic disease. Oncology consulted. bone marrow biopsy done. prostate biopsy on tuesday Plan CODE STATUS: FULL CODE Disposition: plans to go home when medically stable. DS: Summary Hospital Course Reason for hospitalization: Elevated PSA Hospital Course: 62 years old male was admitted for bone pain and elevated PSA. Oncology consulted and possibility of metastatic cancer was raised. Today patient is feeling better and pain is controlled. So patient was discharged home to be followed up with outpatient Urology and Oncology. Workup will be completed as an outpatient. Time Spent with Patient Time attestation: Total time spent providing and/or coordinating discharge services: Exam Narrative: General: Tired Respiratory: Lungs are clear to auscultation bilaterally. Cardiovascular: Regular rate and rhythm with S1-S2. No murmur, gallop or rub. Gastrointestinal: Abdomen is soft, round and tender suprapubic region. with positive bowel sounds. No guarding. Skin: Warm and dry. Generalized pallor. No open wounds or rashes. Extremities: No cyanosis or clubbing. No edema. Peripheral pulses intact. Neurological: Alert and oriented times 4. No facial asymmetry. Legs generalized weakness Psychiatric: Pleasant and cooperative with normal mood and affect. DS: Data Data Completed and Pending Completed studies during hospitalization: Pending at discharge 06/29/22 18:38 Bone Marrow [PTH] Routine Labs on day of discharge: Labs from last 24 hours 07/02/22 07/02/22 06:16 06:16 WBC 10.1 H RBC 2.70 L Hgb 8.4 L Hct 25.5 L MCV 94.4 MCH 31.1 MCHC 32.9 RDW 1
[2022-07-02] MEDS: DULoxetine HCL 60 MG CAPSULE.DR PO (11:35)
[2022-07-02] MEDS: FINASTERIDE 5 MG TABLET PO (11:35)
[2022-07-02] MEDS: DEXAMETHASONE 4 MG TABLET PO (11:35)
[2022-07-02] MEDS: TAMSULOSIN HCL 0.4 MG CAPSULE PO (11:36)
--- NOTE | 2022-07-03 12:51 | PC.NURSE ---
Patient's called stating they were having issues with the pharmacy filling medication. This nurse called [facility] in [place] and verified medication orders. This nurse attempted to call back to verify medication orders were verified and the pharmacy will call her when it is ready to be picked up but voicemail was received. Left message to call with any questions or concerns.
== END 2022-07-02 11:55 | disposition home or self-care (01) | DRG 543 ==
LOC: ANHED 17:56 → ANH3MEDSUR 19:41
PROVIDERS: Nurse Practitioner Family; Physician Assistant; Radiology Diagnostic Radiology; Admitting Provider Chiropractor; Emergency Provider Family Medicine; PCP Family Medicine; Visit Provider Internal Medicine
PROC: 07DR3ZX Extraction of Iliac Bone Marrow, Percutaneous Approach, Diagnostic (ICD-10-PCS; principal; 2022-06-30 08:30)
DX: C79.51 Secondary malignant neoplasm of bone (principal); N13.8 Other obstructive and reflux uropathy; C61 Malignant neoplasm of prostate; N40.1 Benign prostatic hyperplasia with lower urinary tract symptoms; R33.8 Other retention of urine; M54.17 Radiculopathy, lumbosacral region; R97.20 Elevated prostate specific antigen [PSA]; R53.1 Weakness; D64.9 Anemia, unspecified; F17.210 Nicotine dependence, cigarettes, uncomplicated; Z20.822 Contact with and (suspected) exposure to COVID-19; Z86.16 Personal history of COVID-19; Z87.442 Personal history of urinary calculi
CPT/HCPCS: 36415; 36430; 38222; 71275; 72156; 72157; 72158; 74174; 80048; 80053; 80076; 81003; 82607; 82728; 82746; 83540; 83550; 83735; 84443; 85014; 85018; 85025; 85610; 85652; 86140; 86850; 86900; 86901; 86923; 88305; 88311; 88313; 88342; 93970; 96372; 96374; 96375; 96376; 99285; A9270; A9577; C9113; G0378; J1100; J1170; J1642; J2060; J2270; J2405; J3010; J7040; J7050; J8540; P9016; Q9967; U0003; U0005

== ENCOUNTER 2022-07-05 11:48 | Outpatient (CLI) | payer OTHER, SELFPAY ==
[2022-07-05 19:27] LABS: Alanine Aminotransferase 56 U/L (6-50); Albumin Level 3.7 g/dL (3.5-5.1); Alkaline Phosphatase 638 U/L (38-126); Anion Gap 11 mmol/L (8-16); Aspartate Amino Transferase 49 U/L (17-59); Bilirubin,Total 0.5 mg/dL (0.2-1.3); Blood Urea Nitrogen 25 mg/dL (9-20); Calcium 8.3 mg/dL (8.4-10.2); Carbon Dioxide 23 mmol/L (22-30); Chloride 103 mmol/L (98-107); Estimated Glomerular Filt Rate > 60; Glucose 95 mg/dL (65-110); Potassium 4.3 mmol/L (3.4-5.0); Sodium 137 mmol/L (137-145)
[2022-07-05 19:52] LABS: Hematocrit 28.7 % (42.0-52.0); Hemoglobin 9.3 g/dL (14.0-18.0); Immature Platelet Fraction Pct 4.4 % (0.9-11.2); Mean Corpuscular HGB Conc 32.4 g/dl (32-36); Mean Corpuscular Hemoglobin 30.9 pg (26-34); Mean Corpuscular Volume 95.3 fl (80-100); Mean Platelet Volume 9.7 fl (7.4-10.4); Platelet Count Result 243 k/mm3 (150-375); Red Blood Count 3.01 M/mm3 (4.6-6.20); Red Cell Distribution Width 15.5 % (11.5-14.5); White Blood Count 15.4 K/mm3 (4.5-10.0)
[2022-07-05 20:37] LABS: Band Neutrophils Percent 8 % (0-6); Neutrophils Absolute Manual 10.31 K/mm3 (1.3-6.7); Neutrophils Percent Manual 59 % (46-73); Total Cells Counted 100
[2022-07-05 20:38] LABS: Lymphocytes Absolute Manual 3.08 K/mm3 (1.1-4.5); Lymphocytes Percent Manual 20 % (18-44); Metamyelocytes Percent 4 %; Monocytes Absolute Manual 1.07 K/mm3 (0.1-0.90); Monocytes Percent Manual 7 % (3-9); Myelocytes Percent 2 %
[2022-07-05 20:39] LABS: Anisocytosis 2+ (NORMAL); Atypical Lymphocytes Present; Nucleated Red Blood Cells 2 %; Ovalocytes 1+ (NORMAL); Platelet Estimate Adequate (Adequate); Schistocytes None Seen (NORMAL); Tear Drop Cells 1+ (NORMAL)
== END 2022-07-05 11:49 | disposition home or self-care (01) ==
LOC: ANHGOSHLAB 11:50
PROVIDERS: PCP Family Medicine; Visit Provider Nurse Practitioner
DX: D64.9 Anemia, unspecified (principal)
CPT/HCPCS: 36415; 80053; 85025; 85055

== ENCOUNTER 2022-08-09 02:03 | Day surgery (SDC) | payer OTHER, SELFPAY ==
[2022-07-06 13:17] VITALS: BMI 22.8
--- NOTE | 2022-07-06 13:23 | PC.NURSE ---
Report to the Outpatient Waiting Room, entrance under the green pavilion located off [facility], at time 1130 on date 07/21/22. Planned Procedure Time: 1330. Time changes happen often and if your time is changed the preop area will call you the afternoon before. - You and your visitor will be asked to self-screen and do not enter if you have any COVID symptoms. - We encourage only one visitor and NO visitors under age 16 are allowed at this time. Your visitor will receive communication by the phone number that is given day of service. - The patient visitor is requested to social distance or may leave the building when not with patient due to restrictions. - A mask is OPTIONAL within the hospital. Patients may have clear liquids (water, carbonated beverages, clear teas, apple juice) until 3 hours prior to surgery with a maximum of 20 ounces. - No food from midnight until time of surgery Take the following medications with a SIP of water the morning of surgery: DEXAMETHASONE, DULOXETINE, OXYCODONE Medications to discontinue per physician: N/A Date to take last dose: N/A Please no make-up, nail kyrgyz, hairspray, perfume, deodorant, or body powder the day of surgery. No jewelry (including any body piercings) or valuables the day of surgery, leave them at home. Please take a shower or bath the night before, or the morning of, surgery with an antibacterial soap. Wear comfortable, loose fitting clothing. - Jewelry must be removed prior to entering the operating room. Rings and piercings that are not removed may be cut off. - The hospital will not accept responsibility for valuables. - Please leave all valuables, including medications, at home the day of surgery. If you are going home after surgery, a licensed dump truck driver off highway must drive you home. - NO public transportation without another adult. - We recommend that an adult stay with you for 24 hours following discharge. - We also recommend that you do not drive, make important decision, drink alcoholic beverages, or take any drugs that were not prescribed by your health care provider for at least 24 hours after your discharge time. Follow any additional instructions given to you from your surgeon. If you or anyone in your household have experienced Covid symptoms in the past week, please notify your surgeon or the nurse liaison at the phone number below for possible testing. Telephone instructions given to PT - EUGENIO GREGORY and asked if any additional questions and then verbalized understanding. Patient advised to call surgeon office or pre surgery nurse liaison [phone] if any additional questions.
--- NOTE | 2022-07-21 11:50 | PM.IMHP ---
H&P: HPI History of Present Illness Date/Time: 07/21/22 11:50 Chief Complaint: metastatic prostate cancer Narrative: Pt is a 62 y/o M presenting for VAD placement for treatment of metastatic prostate cancer to bone. Pt denies any previous central venous catheterization. Review of Systems Review of Systems: All systems reviewed & are unremarkable except as noted in HPI and below PMFSH Past Medical History Medical History Acute anemia Kidney stones Prostate cancer Surgical History Surgical History History of tonsillectomy Family History Family History Father Malignant neoplasm of prostate Social History Social History Social History: Surrogate medical decision maker: Glory Sanabria, spouse. Code status: Full code. Smoking packs per day: 0.5 Smoking cigarettes per day: 10.0 Years smoked: 15 Smoking pack-years: 7.50 Smoking status: Current some day smoker Tobacco type: cigarettes Second hand tobacco smoke exposure: No Smoking end date: 06/17/22 Alcohol intake: former Drinks per week: 7 Alcohol use details: wine Substance use: never Substance use type: does not use Lack of Transportation: No Lack of Food: Never True Current Housing: I Have Housing Concerned About Future Housing: No Difficulty Paying Gas/Electric Bills: No Difficulty Paying for Meds: No Currently Unemployed: No Education: Master's Degree or Higher Difficulty w/ Childcare or Family Care: No Living arrangements: with family Spiritual care concerns: No Meds Home Medications and Allergies Home Medications Medication Instructions Recorded Confirmed Type duloxetine 60 mg capsule,delayed 60 mg PO DAILY #30 caps 06/28/22 07/19/22 Rx release dexamethasone 4 mg tablet 4 mg PO QID #60 tabs 07/02/22 07/19/22 Rx finasteride 5 mg tablet (Proscar) 5 mg PO QAM #30 tabs 07/02/22 07/19/22 Rx oxycodone 5 mg tablet 5 mg PO Q4H PRN pain #60 tabs 07/05/22 07/19/22 Rx bicalutamide 50 mg tablet 50 mg PO DAILY 07/19/22 07/19/22 History tamsulosin 0.4 mg capsule 0.4 mg PO DAILY 07/19/22 07/19/22 History Allergies Allergy/AdvReac Type Severity Reaction Status Date / Time No Known Allergies Allergy Verified 07/19/22 14:40 Exam Const: General: cooperative, comfortable and no acute distress Nutritional Appearance: average body habitus Orientation/consciousness: patient oriented x3 Chest: Chest palpation & inspection: normal inspection of the chest Resp: Auscultation: clear to auscultation bilaterally Cardio: Rate: regular rate Rhythm: regular rhythm GI: Inspection: normal to inspection and distended Skin: General skin exam: normal color and no rashes or lesions noted Assessment and Plan Assessment and plan (1) Metastatic malignant neoplasm to prostate: Code(s): C79.82 - Secondary malignant neoplasm of genital organs Status: Acute Assessment and Plan: will setup for VAD placement
--- NOTE | 2022-08-02 13:35 | PC.NURSE ---
Report to the Outpatient Waiting Room, entrance under the green pavilion located off [facility], at time _1030_ on date _[id number]_. Planned Procedure Time: _1230_. Time changes happen often and if your time is changed the preop area will call you the afternoon before. - You and your visitor will be asked to self-screen and do not enter if you have any COVID symptoms. - Only one visitor is requested with a max of two and NO children visitors are allowed at this time. - The patient visitor may be requested to leave or wait in car when not with patient due to distancing restrictions. - A mask is optional within the hospital. Patients may have clear liquids (water, carbonated beverages, clear teas, apple juice) until 3 hours prior to surgery with a maximum of 20 ounces. - No food from midnight until time of surgery Take the following medications with a SIP of water the morning of surgery: __All current medications Medications to discontinue per physician None Date to take last dose Please no make-up, nail chilean, hairspray, perfume, deodorant, or body powder the day of surgery. No jewelry (including any body piercings) or valuables the day of surgery, leave them at home. Please take a shower or bath the night before, or the morning of, surgery with an antibacterial soap. Wear comfortable, loose fitting clothing. - Jewelry must be removed prior to entering the operating room. Rings and piercings that are not removed may be cut off. - The hospital will not accept responsibility for valuables. - Please leave all valuables, including medications, at home the day of surgery. If you are going home after surgery, a licensed ups driver must drive you home. - NO public transportation without another adult if you receive anesthesia. - We recommend that an adult stay with you for 24 hours following discharge. - We also recommend that you do not drive, make important decision, drink alcoholic beverages, or take any drugs that were not prescribed by your health care provider for at least 24 hours after your discharge time. Follow any additional instructions given to you from your surgeon. If you or anyone in your household have experienced Covid symptoms in the past week, please notify your surgeon or the nurse liaison at the phone number below for possible testing. Telephone instructions given to _Patient and wife__and asked if any additional questions and then verbalized understanding. Patient advised to call surgeon office or pre surgery nurse liaison [phone] if any additional questions.
--- NOTE | 2022-08-06 15:34 | PM.HPGS ---
History of Present Illness History of Present Illness Consent: Risks, benefits, and alternatives Of placement of Port-A-Cath have been discussed and questions answered. Patient agrees to proceed with procedure. Chief complaint: metastatic prostate CA Narrative: Mike Sanabria III is a 62 year old male who is referred at this time for placement of a vascular access device. We were planning to place a low-profile Bard port for use in chemotherapy. This patient is an unfortunate 62-year-old white male who was recently diagnosed with fairly widely metastatic prostate cancer to bone. He is planning further treatment with Dr. Rivera and needs vascular access for chemotherapy. He has never had previous surgery on his neck has not previously had a vascular access device. Last month the patient had a bone marrow via biopsy and aspiration which showed adenocarcinoma the prostate. He has visited with Dr. Rivera and they are planning continuing chemotherapy with Taxotere and also hormone manipulation. He has also received consultation with a radiation oncologist and they are planning further treatments. Review of Systems Constitutional: Constitutional: Reports no additional constitutional complaints, Reports fatigue and Denies malaise Eyes: Eyes: Denies change in vision and Denies loss of vision ENT: Reports Normal hearing present, Denies change in voice, Denies dizziness, Denies hoarseness and Denies sore throat Cardiovascular: Cardiovascular: Denies chest pain, Denies leg edema and Denies dyspnea Respiratory: Respiratory: Denies cough, Denies dyspnea and Denies wheezing Gastrointestinal: Gastrointestinal: Denies hematochezia, Denies change in bowel habits and Denies heartburn Neurologic: Reports Normal hearing present, Denies confusion, Denies dizziness, Denies loss of vision, Denies memory loss and Denies seizure-like activity Psychiatric: Psychiatric: Denies confusion, Denies depression and Denies memory loss Endocrine: Endocrine: Denies cold intolerance and Reports fatigue Hematologic/Lymphatic: Hematologic/Lymphatic: Denies easy bleeding and Denies easy bruising Allergic/Immunologic: Allergic/Immunologic: Denies wheezing PMFSH Past Medical History Medical History Acute anemia Kidney stones Prostate cancer Surgical History Surgical History History of tonsillectomy Family History Family History Father Malignant neoplasm of prostate Social History Social History Social History: Surrogate medical decision maker: Glory Sanabria, spouse. Code status: Full code. Smoking packs per day: 0.5 Smoking cigarettes per day: 10.0 Years smoked: 15 Smoking pack-years: 7.50 Smoking status: Current some day smoker Tobacco type: cigarettes Second hand tobacco smoke exposure: No Smoking end date: 06/17/22 Alcohol intake: former Drinks per week: 7 Alcohol use details: wine Substance use: never Substance use type: does not use Lack of Transportation: No Lack of Food: Never True Current Housing: I Have Housing Concerned About Future Housing: No Difficulty Paying Gas/Electric Bills: No Difficulty Paying for Meds: No Currently Unemployed: No Education: Master's Degree or Higher Difficulty w/ Childcare or Family Care: No Living arrangements: with family Spiritual care concerns: No Meds Home Medications and Allergies Home Medications Medication Instructions Recorded Confirmed Type duloxetine 60 mg capsule,delayed 60 mg PO DAILY #30 caps 06/28/22 07/19/22 Rx release finasteride 5 mg tablet (Proscar) 5 mg PO QAM #30 tabs 07/02/22 07/19/22 Rx bicalutamide 50 mg tablet 50 mg PO DAILY 07/19/22 08/02/22 History oxycodone 5 mg tablet 5 mg PO Q4H PRN pain #60 tabs 1
--- NOTE | 2022-08-07 09:51 | WPDANESEPPF ---
Anes - Initial Pre Proc Eval Procedure: Operation Date: 08/09/22 10:30 Proposed Procedures p Insertion Ricardo Cath - Je Garcia MD Date/Time: 08/07/22 09:51 Surgeon: Je Garcia MD Pre Op Diagnosis: metastatic prostate CA Patient Data Age: 62 Gender: M Height: 1.85 m Weight: 78.5 kg Allergies Allergy/AdvReac Type Severity Reaction Status Date / Time No Known Allergies Allergy Verified 07/19/22 14:40 Home Medications Medication Instructions Recorded Confirmed Type duloxetine 60 mg capsule,delayed 60 mg PO DAILY #30 caps 06/28/22 07/19/22 Rx release finasteride 5 mg tablet (Proscar) 5 mg PO QAM #30 tabs 07/02/22 07/19/22 Rx bicalutamide 50 mg tablet 50 mg PO DAILY 07/19/22 08/02/22 History oxycodone 5 mg tablet 5 mg PO Q4H PRN pain #60 tabs 07/30/22 08/02/22 Rx enzalutamide 40 mg capsule 160 mg PO DAILY 08/02/22 08/02/22 History ondansetron 8 mg disintegrating 8 mg PO BID PRN Nausea 08/02/22 08/02/22 History tablet prednisone 5 mg tablet 5 mg PO BID 08/02/22 08/02/22 History Patient hx anesthesia problems: none Family hx anesthesia problems: none Results Review: All pre-operative results and documents have been reviewed as part of the pre-operative evaluation. [facility] Past Medical History Medical History Acute anemia Kidney stones Prostate cancer Surgical History Surgical History History of tonsillectomy Family History Family History Father Malignant neoplasm of prostate Social History Social History Social History: Surrogate medical decision maker: Glory Sanabria, spouse. Code status: Full code. Smoking packs per day: 0.5 Smoking cigarettes per day: 10.0 Years smoked: 15 Smoking pack-years: 7.50 Smoking status: Current some day smoker Tobacco type: cigarettes Second hand tobacco smoke exposure: No Smoking end date: 06/17/22 Alcohol intake: former Drinks per week: 7 Alcohol use details: wine Substance use: never Substance use type: does not use Lack of Transportation: No Lack of Food: Never True Current Housing: I Have Housing Concerned About Future Housing: No Difficulty Paying Gas/Electric Bills: No Difficulty Paying for Meds: No Currently Unemployed: No Education: Master's Degree or Higher Difficulty w/ Childcare or Family Care: No Living arrangements: with family Spiritual care concerns: No Anes - Eval Final PreProcedure Day of Procedure 08/07/22 09:51 Patient weight: normal Heart: regular rate and rhythm Lungs: clear to auscultation and normal air movement Airway: Mallampati scale class II Neurological: alert and oriented Last oral intake: >/= 8 hours ASA classification: III Emergent: no Anesthetic plan: proceed Anesthesia type and monitoring: general GIVS and LMA Results Review: All pre-operative results and documents have been reviewed as part of the pre-operative evaluation. Informed Consent: The patient's anesthetic plan and its attendant risks and benefits were discussed with the patient/family/POA. Questions were solicited and answers provided to the satisfaction of the patient/family/POA.
--- NOTE | ~2022-08-09 | XR_ITS ---
EXAMINATION: XR fl guide central line place DATE: 08/09/2022 10:48 INDICATION: Right-sided port catheter insertion TECHNIQUE: 2 fluoroscopic images of the central chest were obtained during procedure performed by Dr. Garcia. Radiologist was not present for the imaging or procedure. The amount of fluoroscopy time us ed during this procedure was 1.1 minutes. COMPARISON: None. FINDINGS: Right internal jugular central venous port catheter with distal tip at the caudal superior vena cava. Additional catheter projecting over the mediastinum which does not conform to a typical an atomic location, likely external to the patient. Visualized portions of the central lungs are clear. IMPRESSION: 1. Right internal jugular central venous port catheter tip at the caudal superior vena cava. Reviewed, dictated and finalized at location B. CTOR DIGITAL CATALOGUE IMPRESSION: 1. Right internal jugular central venous port catheter tip at the caudal superi or vena cava.
--- NOTE | ~2022-08-09 | XR_ITS ---
EXAMINATION: XR chest port-a-cath/central DATE: 08/09/2022 11:16 INDICATION: Port catheter insertion TECHNIQUE: frontal view of the chest was obtained. COMPARISON: Chest radiograph dated 06/18/2022 FINDINGS: Right internal jugular central venous port catheter with distal tip at the caudal superior vena cava. Pulmonary vascular congestion and increased interstitial pattern in the bilateral mid to lower lung z ones consistent with mild pulmonary edema. No pleural effusion or pneumothorax. The cardiomediastinal silhouette is normal. Visualized bones and soft tissues are unremarkable. IMPRESSION: 1. Right internal jugular central venous port catheter tip at the caudal superior vena cava. 2. Pulmonary vascular congestion with likely mild pulmonary edema in the mid to lower lung zones. Dif ferential would include less likely pneumonia or atelectasis. Reviewed, dictated and finalized at location B. ION CHIEF IMPRESSION: 1. Right internal jugular central venous port catheter tip at the caudal superi or vena cava. 2. Pulmonary vascular congestion with likely mild pulmonary edema in the mid to lower lung zones. Differential would include less likely pneumonia or atelecta sis.
[2022-08-09 08:57] VITALS: BP 115/46; PULSE 72; RESP 16; TEMP 36.4; O2SAT 100
[2022-08-09] MEDS: LACTATED RINGERS 1,000 ML 30 ML IV CONT ×2 (09:28→11:05)
[2022-08-09] MEDS: KETOROLAC 15 MG/ML VIAL (*BKC) IV PUSH (09:30)
--- NOTE | 2022-08-09 09:45 | WPDHPUPDATE1 ---
History and Physical Update Update Date/Time: 08/09/22 09:45 History and Physical has been reviewed, including an updated exam of the patient. There are NO changes in the patient's condition. Risks, benefits, and alternatives have been discussed and questions answered. Patient agrees to proceed with procedure.
[2022-08-09 09:50] LABS: INR 1.1; Prothrombin Time 13.5 Seconds (11.1-14.7)
[2022-08-09] MEDS: ceFAZolin 2 GM/D5W 50 ML 2 GM/50 ML BAG IVPB (09:57)
[2022-08-09] MEDS: BUPIVACAINE/EPINEPHRINE 0.5% 10 ML VIAL 20 ML INFILTRATE (09:57)
[2022-08-09] MEDS: HEPARIN SODIUM 5,000 UNITS/ML VIAL 5000 UNITS IRRIGATION (10:34)
[2022-08-09 11:05] VITALS: BP 130/63; PULSE 70; RESP 20
--- NOTE | 2022-08-09 11:29 | W.PM.PROC2 ---
Procedure Note - Detailed Date of Procedure 08/09/22 Pre-op Diagnosis metastatic prostate CA Post-op Diagnosis Same Procedure Performed 1. Placement of Ricardo-cath. 2. Use of US for vascular access site selection and visualization of needle access to vein. Surgeon Je Garcia MD Cooling Room Attendant Liz CRISTINA.OR first calender worker Anesthesia Local (with 0.5% Marcaine with epinepherine) and Other (GIVS) Indications Patient has metastatic prostate cancer and will be receiving chemotherapy through the port. Oncologist felt he would be best served by having a vascular access device for blood draws and medications. Findings Normal appearing vascular anatomy the right side of the neck. Description of Procedure Patient was seen and marked in the pre-op area prior to coming to the OR. Patient was brought to the operating room. Patient was placed supine on the operating table and general IV sedation was induced. The nurse coke drawer hand provided And continuous monitoring, oxygen, and IV sedation or general anesthesia with IV sedation as was appropriate for the patient's condition. See anesthesia notes). Patient's head was carefully turned to the left side while in the supine position and the patient's entire neck and anterior chest on both sides was prepped and draped in the usual sterile fashion. Following this the appropriate time-out was completed confirming procedure and patient. We confirmed that all the needed equipment was present in the room including the vascular ultrasound probe in machine. Following this the ultrasound probe was draped into the field and using the probe we carefully identified the carotid artery and jugular vein on the right neck. I then saved an image of the vascular anatomy of the neck, which documented the selected vessels patency and transferred it from the ultrasound machine to the Devex chart. I marked the skin directly over the right internal jugular vein. I then used an 11 blade knife to make a small lew in the skin. Following this, using the continuous ultrasound guidance, a Cook needle was placed through the skin incision and on into this vein. I then was able to draw back good dark blood. Once this was completed a guidewire using a J-tip was advanced through the needle and then the needle and the guidewire cover were withdrawn. C-arm fluoroscopy was used to confirm that the guidewire was nicely in the central venous system. Once this was confirmed with the C - arm, I preceded on by making the pocket for the port on the patient's anterior right chest approximately 3 centimeters below the clavicle overlying the chest wall. Local anesthetic was infiltrated into the skin where there was a transverse incision marked out. Incision was made and we made a pocket inferior to the incision with just a little dissection superior. The Bard low-profile port was tried in the pocket and seemed to fit well. Following this the catheter which had been placed on a tunneling device was tunneled from the port site on the anterior right chest up to the right neck where the small incision had been made slightly larger with an #11 blade knife. Then the catheter was pulled through so that we would have 15 centimeters to put into the central venous system once the dilation took place. Following this we placed the dilator and sheath over the guidewire in the jugular vein and carefully dilated the tract into the central venous system. The guidewire and dilator were then removed, carefully covering the end of the sheath to prevent air embolus. The end of the catheter which had been removed from the tunneling device and the tip checked was then inserted into the sheath and into the neck. I then carefully pulled the 2 arms of the tear-away sheath away as the purchasing administrative assistant held the catheter in position with a DeBakey forceps. Following this we checked the position of the catheter with C-arm fluoroscopy confirming that the tip seemed to be in the distal superior
[2022-08-09 11:30] VITALS: BP 135/65; PULSE 62; RESP 20
[2022-08-09 12:00] VITALS: BP 136/55; PULSE 70; RESP 20
[2022-08-09 12:30] VITALS: BP 146/65; PULSE 62; RESP 20
[2022-08-09 12:50] VITALS: BP 148/69; PULSE 66; RESP 20
--- NOTE | 2022-08-09 14:34 | SUR.PHASEII ---
1230 - pt instructed on incentive spirometer. demonstrated back without difficulty
== END 2022-08-09 12:53 | disposition home or self-care (01) ==
PROVIDERS: PCP Family Medicine; Visit Provider Surgery
PROC: (CPT 36561; principal; 2022-08-09 10:30)
DX: C61 Malignant neoplasm of prostate (principal); C79.51 Secondary malignant neoplasm of bone; D64.9 Anemia, unspecified; F17.210 Nicotine dependence, cigarettes, uncomplicated
CPT/HCPCS: 36561; 36415; 76937; 77001; 85610; C1788; J0690; J1644; J1885; J2250; J2704; J3010; J7030; J7120

== ENCOUNTER 2022-08-24 07:04 | Outpatient (RCR) | payer OTHER, SELFPAY ==
[2022-08-24 07:41] LABS: Hematocrit 22.6 % (42.0-52.0)
[2022-08-24 07:45] LABS: Hemoglobin 6.9 g/dL (14.0-18.0)
[2022-08-24] MEDS: ACETAMINOPHEN 325 MG TABLET 650 MG PO (08:23)
[2022-08-24] MEDS: diphenhydrAMINE HCl CAP 25 MG CAPSULE PO (08:23)
[2022-08-24] MEDS: SODIUM CHLORIDE 0.9% IV 250 ML 30 ML IV CONT (08:23)
[2022-08-24 08:35] VITALS: BP 165/89; PULSE 72; RESP 18; TEMP 36.6; O2SAT 100
[2022-08-24 08:53] VITALS: BP 152/77; PULSE 69; RESP 16; TEMP 36.5; O2SAT 100
[2022-08-24 09:38] VITALS: BP 165/81; PULSE 71; RESP 16; TEMP 36.3; O2SAT 100
[2022-08-24 10:38] VITALS: BP 156/76; PULSE 75; RESP 18; TEMP 36.3; O2SAT 98
[2022-08-24 11:38] VITALS: BP 150/73; PULSE 65; RESP 18; TEMP 36.6; O2SAT 100
[2022-08-24 12:09] VITALS: BP 168/77; PULSE 64; RESP 18; TEMP 36.4; O2SAT 100
--- NOTE | 2022-08-24 12:19 | PC.NURSE ---
Discharge instructions given and reviewed. Questions answered. IV removed, site WDL. Pt escorted out to vehicle.
== END 2022-11-22 23:59 | disposition home or self-care (01) ==
LOC: ANHCPCTRAN 07:04
PROVIDERS: PCP Family Medicine; Visit Provider Internal Medicine Hematology & Oncology
DX: D64.9 Anemia, unspecified (principal)
CPT/HCPCS: 36415; 36430; 85014; 85018; 86850; 86900; 86901; 86923; A9270; J7050; P9016

== ENCOUNTER 2022-10-20 13:31 | Outpatient (CLI) | payer OTHER, SELFPAY ==
--- NOTE | ~2022-10-20 | US_ITS ---
EXAMINATION:US venous doppler LE LT INDICATION:Left leg swelling TECHNIQUE: Multiple grayscale, color flow and Doppler images of the left lower extremity deep venous systems were obtained and reviewed. COMPARISON:06/28/2022 FINDINGS: The common femoral, superficial femoral and popliteal veins demonstrate normal respiratory variation, augmentation and compressibility. Color flow is also seen within the posterior tibial, pe roneal, greater saphenous and profunda veins. IMPRESSION: 1: No lower extremity deep venous thrombosis. Reviewed, dictated and finalized at location B. ET ORGANIZER
== END 2022-10-20 13:32 | disposition home or self-care (01) ==
PROVIDERS: PCP Family Medicine; Visit Provider Internal Medicine Hematology & Oncology
DX: M79.89 Other specified soft tissue disorders (principal)
CPT/HCPCS: 93971

== ENCOUNTER 2022-10-27 11:27 | Outpatient (CLI) | payer OTHER, SELFPAY ==
--- NOTE | ~2022-10-27 | NM_ITS ---
Whole-body bone scan: History: Metastatic disease. Radiopharmaceutical: 25.2 mCi of technetium 99m MDP was administered intravenously. Procedure: Three hour delayed anterior and posterior whole-body bone scan was performed. COMPARISON: 06/16/2022 Findings: There are focal areas of increased uptake in the right ischium. Questionable focal increase d uptake at the left greater trochanteric region. Additionally, there is minimal if any appreciable r enal uptake, raising the possibility of SuperScan/diffuse osseous metastatic disease.. Impression: Findings suggestive of superscan, with diffuse osseous metastatic disease, with focal areas of some p resent increased uptake at the right ischium, and questionably at the left greater trochanter. Consid er plain radiographic correlation is indicated. Reviewed, dictated and finalized at location M. ESS BELT FINISHER Impression: Findings suggestive of superscan, with diffuse osseous metastatic disease, with focal areas of some present increased uptake at the right ischium, and questio nably at the left greater trochanter. Consider plain radiographic correlation i s indicated.
== END 2022-10-27 11:28 | disposition home or self-care (01) ==
PROVIDERS: PCP Family Medicine; Visit Provider Internal Medicine Hematology & Oncology
DX: C79.51 Secondary malignant neoplasm of bone (principal)
CPT/HCPCS: 78306; A9503

== ENCOUNTER → 2022-12-07 08:08 | Outpatient (CLI) | payer OTHER, SELFPAY ==
--- NOTE | ~2022-12-07 | US_ITS ---
Thyroid ultrasound. Clinical History: Nontoxic goiter Findings: Real-time sonography of the thyroid gland was performed. The right lobe measures 4.7 x 1.9 x 1.1 cm. The left lobe measures 4.1 x 1.4 x 0.8 cm. The isthmus is 3 mm in AP diameter. Parenchyma is homogeneous. No thyroid nodule seen. Impression: Unremarkable exam. Reviewed, dictated and finalized at location . Impression: Unremarkable exam.
== END ==
PROVIDERS: PCP Internal Medicine Endocrinology, Diabetes & Metabolism; Visit Provider Internal Medicine Endocrinology, Diabetes & Metabolism
DX: E04.9 Nontoxic goiter, unspecified (principal)
CPT/HCPCS: 76536

== ENCOUNTER 2022-12-07 08:23 | Outpatient (CLI) | payer OTHER, SELFPAY ==
[2022-12-07 19:31] LABS: Iron 73 ug/dL (49-181)
[2022-12-07 19:42] LABS: Alanine Aminotransferase 23 U/L (6-50); Albumin Level 3.8 g/dL (3.5-5.1); Alkaline Phosphatase 86 U/L (38-126); Anion Gap 9 mmol/L (8-16); Aspartate Amino Transferase 27 U/L (17-59); Bilirubin,Total 0.5 mg/dL (0.2-1.3); Blood Urea Nitrogen 15 mg/dL (9-20); Calcium 8.3 mg/dL (8.4-10.2); Carbon Dioxide 23 mmol/L (22-30); Chloride 106 mmol/L (98-107); Estimated Glomerular Filt Rate > 60; Glucose 105 mg/dL (65-110); Magnesium 2.4 mg/dL (1.6-2.3); Potassium 4.5 mmol/L (3.4-5.0); Sodium 138 mmol/L (137-145)
[2022-12-07 19:49] LABS: Free T4 Free Thyroxine 1.05 ng/mL (0.78-2.19)
[2022-12-07 20:08] LABS: Hematocrit 34.2 % (42.0-52.0); Hemoglobin 11.1 g/dL (14.0-18.0); Mean Corpuscular HGB Conc 32.5 g/dl (32-36); Mean Corpuscular Volume 101.8 fl (80-100); Mean Platelet Volume 9.6 fl (7.4-10.4); Platelet Count Result 241 k/mm3 (150-375); Red Blood Count 3.36 M/mm3 (4.6-6.20); Red Cell Distribution Width 16.2 % (11.5-14.5)
[2022-12-07 21:07] LABS: Lymphocytes Percent Manual 65 % (18-44); Monocytes Absolute Manual 0.56 K/mm3 (0.1-0.90); Monocytes Percent Manual 28 % (3-9); Neutrophils Percent Manual 7 % (46-73); Ovalocytes 1+ (NORMAL); Platelet Estimate Adequate (Adequate); Schistocytes None Seen (NORMAL); Total Cells Counted 100
[2022-12-08 03:12] LABS: Percent Iron Saturation 25 % (20-50)
[2022-12-08 03:32] LABS: T4 Thyroxine 7.23 ug/dL (5.53-11.0); Total Triiodothyronine (T3) 0.92 NG/ML (0.97-1.69)
[2022-12-08 04:03] LABS: Folic Acid 19.8 ng/mL (2.76->20)
[2022-12-09 18:49] LABS: Ionized Calcium 4.7 mg/dL (4.7-5.5)
[2022-12-10 03:15] LABS: Thyroid Peroxidase Antibodies <1 IU/mL (<9)
[2022-12-10 04:14] LABS: Triiodothyronine T3 Free 2.7 pg/mL (2.3-4.2)
== END 2022-12-07 08:24 | disposition home or self-care (01) ==
LOC: ANHGOSHLAB 08:24
PROVIDERS: PCP Internal Medicine Endocrinology, Diabetes & Metabolism; Visit Provider Internal Medicine Endocrinology, Diabetes & Metabolism
DX: E21.3 Hyperparathyroidism, unspecified (principal); R53.83 Other fatigue
CPT/HCPCS: 36415; 80053; 82306; 82330; 82607; 82746; 83540; 83550; 83735; 83970; 84100; 84436; 84439; 84443; 84480; 84481; 85025; 86376

== ENCOUNTER 2023-01-11 09:22 | Outpatient (CLI) | payer OTHER, SELFPAY ==
--- NOTE | ~2023-01-11 | CT_ITS ---
EXAMINATION: CT chest abdomen pelvis w con DATE: 01/11/2023 09:45 INDICATION: Prostate cancer metastatic to bone. TECHNIQUE: Computed tomography (CT) of the chest, abdomen, and pelvis was performed with 100 mL Omnip aque 350 intravenous contrast. Automated exposure control and iterative reconstruction technique were employed. The dose-length product was 571.69 mGy-cm. COMPARISON: CT chest, abdomen, and pelvis 06/28/2022 FINDINGS: CHEST CT: There is mild scarring at the lung apices. There is mild atelectasis bilaterally. There is mild emphy sema. No pleural effusion. There is a right internal jugular port with tip at superior cavoatrial rachel ction. The heart size is normal. No pericardial effusion. There is widespread sclerosis of all of the bones. ABDOMEN/PELVIS CT: The liver, gallbladder, spleen, pancreas, adrenal glands, and kidneys are normal. The bladder is gamaliel edly distended. There is diffuse bladder wall thickening. There are no dilated loops of bowel. The ap pendix is normal. There are no pathologically enlarged lymph nodes. There is no free intraperitoneal fluid. There is widespread sclerosis of all of the bones. IMPRESSION: 1. Widespread sclerosis of all of the bones with worsening from 06/28/22, consistent with metastatic d isease. 2. Marked distention of the bladder again seen. Chronic bladder wall thickening may be secondary to c hronic outlet obstruction or neurogenic bladder. Reviewed, dictated and finalized at location A. IMPRESSION: 1. Widespread sclerosis of all of the bones with worsening from 06/28/22, consis tent with metastatic disease. 2. Marked distention of the bladder again seen. Chronic bladder wall thickening may be secondary to chronic outlet obstruction or neurogenic bladder.
== END 2023-01-11 09:23 | disposition home or self-care (01) ==
LOC: ANHIMG 09:25
PROVIDERS: PCP Internal Medicine Endocrinology, Diabetes & Metabolism; Visit Provider Internal Medicine Hematology & Oncology
DX: C79.51 Secondary malignant neoplasm of bone (principal)
CPT/HCPCS: 71260; 74177; Q9967

== ENCOUNTER 2023-01-13 08:00 | Outpatient (CLI) | payer OTHER, SELFPAY ==
--- NOTE | ~2023-01-13 | NM_ITS ---
EXAMINATION: NM bone scan whole body DATE: 01/13/2023 10:59 INDICATION: Cancer, metastatic to bone TECHNIQUE: 24.5 mCi Tc-99m HDP was administered intravenously. Delayed whole-body scintigrams were o btained. COMPARISON: Bone scan dated 10/27/[address] chest, abdomen and pelvis dated 01/11/2023 FINDINGS: Nearly identical pattern of somewhat heterogeneous diffuse increased bone uptake and proximal appendi cular skeleton consistent with widespread metastatic disease. This remains most intense at the head o f the right ischial. IMPRESSION: 1. No significant change in a heterogeneous pattern of diffuse increased axial and proximal appendicu lar uptake with corresponding patchy sclerosis on CT consistent with diffuse osseous metastatic disea se. Reviewed, dictated and finalized at location A. IMPRESSION: 1. No significant change in a heterogeneous pattern of diffuse increased axial and proximal appendicular uptake with corresponding patchy sclerosis on CT cons istent with diffuse osseous metastatic disease.
== END 2023-01-13 08:01 | disposition home or self-care (01) ==
PROVIDERS: PCP Internal Medicine Endocrinology, Diabetes & Metabolism; Visit Provider Internal Medicine Hematology & Oncology
DX: C79.51 Secondary malignant neoplasm of bone (principal)
CPT/HCPCS: 78306; A9503

== ENCOUNTER 2023-02-28 01:10 | Day surgery (SDC) | payer OTHER, SELFPAY ==
[2023-02-25 11:20] VITALS: BMI 23.7
--- NOTE | 2023-02-25 11:27 | PC.NURSE ---
Report to the Outpatient Waiting Room, entrance under the green pavilion located off [facility], at time 1330 on date 02/28/23. Planned Procedure Time: 1530. Time changes happen often and if your time is changed the preop area will call you the afternoon before. - You and your visitor will be asked to self-screen and do not enter if you have any COVID symptoms. - A mask is optional within the hospital at this time. Patients may have clear liquids (water, carbonated beverages, clear teas, apple juice) until 3 hours prior to surgery with a maximum of 20 ounces. - No food from midnight until time of surgery Take the following medications with a SIP of water the morning of surgery: PREDNISONE, OXYCODONE IF NEEDED DO NOT STOP ANY OF YOUR OTHER PRESCRIPTION MEDICATIONS PRIOR TO SURGERY ?EXCEPT THE FOLLOWING Medications to discontinue per physician: VITAMINS/SUPPLEMENTS Date to take last dose: NO MORE UNTIL AFTER SURGERY Please no make-up, nail hungarian, hairspray, perfume, deodorant, or body powder the day of surgery. No jewelry (including any body piercings) or valuables the day of surgery, leave them at home. Please take a shower or bath the night before, or the morning of, surgery with an antibacterial soap. Wear comfortable, loose fitting clothing. - Jewelry must be removed prior to entering the operating room. Rings and piercings that are not removed may be cut off. - The hospital will not accept responsibility for valuables. - Please leave all valuables, including medications, at home the day of surgery. If you are going home after surgery, a licensed delivery driver/customer service must drive you home. - NO public transportation without another adult if you receive anesthesia. - We recommend that an adult stay with you for 24 hours following discharge. - We also recommend that you do not drive, make important decision, drink alcoholic beverages, or take any drugs that were not prescribed by your health care provider for at least 24 hours after your discharge time. Follow any additional instructions given to you from your surgeon. If you or anyone in your household have experienced Covid symptoms in the past week, please notify your surgeon or the nurse liaison at the phone number below for possible testing. Telephone instructions given to MAKAYLA PAGE and asked if any additional questions and then verbalized understanding. Patient advised to call surgeon office or pre surgery nurse liaison [phone] if any additional questions.
[2023-02-28 12:47] VITALS: BP 149/72; PULSE 61; RESP 18; TEMP 36.7; O2SAT 100
[2023-02-28] MEDS: LACTATED RINGERS 1,000 ML 30 ML IV CONT (13:09)
--- NOTE | 2023-02-28 13:32 | WPDANESEPPF ---
Anes - Initial Pre Proc Eval Procedure: Operation Date: 02/28/23 15:30 Proposed Procedures p Removal Ricardo Cath - Ron Shafer MD Date/Time: 02/28/23 13:32 Surgeon: Ron Shafer MD Pre Op Diagnosis: prostate cancer Patient Data Age: 62 Gender: M Height: 1.83 m Weight: 81.2 kg Last Vital Signs Temp 36.7 C 02/28/23 12:47 Pulse 61 02/28/23 12:47 Resp 18 02/28/23 12:47 BP 149/72 H 02/28/23 12:47 Pulse Ox 100 02/28/23 12:47 O2 Del Method Room Air 02/28/23 12:47 Allergies Allergy/AdvReac Type Severity Reaction Status Date / Time No Known Allergies Allergy Verified 02/28/23 12:53 Home Medications Medication Instructions Recorded Confirmed Type prednisone 5 mg tablet 5 mg PO BID 08/02/22 02/28/23 History oxycodone 5 mg tablet 5 mg PO Q4H PRN pain #60 tabs 11/08/22 02/28/23 Rx calcitriol 0.25 mg PO DAILY 01/12/23 02/28/23 History abiraterone 250 mg tablet 1,000 mg PO DAILY 02/25/23 02/28/23 History Patient hx anesthesia problems: none Family hx anesthesia problems: none Results Review: All pre-operative results and documents have been reviewed as part of the pre-operative evaluation. [facility] Past Medical History Medical History Acute anemia Kidney stones Prostate cancer Surgical History Surgical History History of tonsillectomy Family History Family History Father Malignant neoplasm of prostate Social History Social History Social History: Surrogate medical decision maker: Glory Sanabria, spouse. Code status: Full code. Smoking packs per day: 0.5 Smoking cigarettes per day: 10.0 Years smoked: 10 Smoking pack-years: 5.00 Smoking status: Former smoker Tobacco type: cigarettes Second hand tobacco smoke exposure: No Smoking end date: 05/22/22 Alcohol intake: current Drinks per week: 3 Alcohol use details: wine Substance use: never Substance use type: does not use Lack of Transportation: No Lack of Food: Never True Current Housing: I Have Housing Concerned About Future Housing: No Difficulty Paying Gas/Electric Bills: No Difficulty Paying for Meds: No Currently Unemployed: No Education: Master's Degree or Higher Difficulty w/ Childcare or Family Care: No Living arrangements: with family Spiritual care concerns: No Anes - Eval Final PreProcedure Day of Procedure 02/28/23 13:32 Patient weight: normal Heart: regular rate and rhythm Lungs: clear to auscultation and normal air movement Airway: Mallampati scale class II Neurological: alert and oriented Last oral intake: >/= 8 hours ASA classification: III Emergent: no Anesthetic plan: proceed Anesthesia type and monitoring: general GIVS and LMA Results Review: All pre-operative results and documents have been reviewed as part of the pre-operative evaluation. Informed Consent: The patient's anesthetic plan and its attendant risks and benefits were discussed with the patient/family/POA. Questions were solicited and answers provided to the satisfaction of the patient/family/POA.
--- NOTE | 2023-02-28 15:17 | PM.IMHP ---
H&P: HPI History of Present Illness Date/Time: 02/28/23 15:17 Chief Complaint: Metastatic prostate CA Narrative: Pt with metastatic prostate CA. Had port placed 6-7 months ago. He no longer needs the port. Presents today to have the port removed. It is located in the right anterior chest and into the right IJ vein. Review of Systems Review of Systems: The remainder of the review of systems to include constitutional, HEENT, cardiovascular, respiratory, GI, , integumentary, musculoskeletal, endocrine, immunologic, hematologic, psychiatric, and neurologic are all negative except for which is mentioned above in the HPI. [facility] Past Medical History Medical History Acute anemia Kidney stones Prostate cancer Surgical History Surgical History History of tonsillectomy Family History Family History Father Malignant neoplasm of prostate Social History Social History Social History: Surrogate medical decision maker: Glory Sanabria, spouse. Code status: Full code. Smoking packs per day: 0.5 Smoking cigarettes per day: 10.0 Years smoked: 10 Smoking pack-years: 5.00 Smoking status: Former smoker Tobacco type: cigarettes Second hand tobacco smoke exposure: No Smoking end date: 05/22/22 Alcohol intake: current Drinks per week: 3 Alcohol use details: wine Substance use: never Substance use type: does not use Lack of Transportation: No Lack of Food: Never True Current Housing: I Have Housing Concerned About Future Housing: No Difficulty Paying Gas/Electric Bills: No Difficulty Paying for Meds: No Currently Unemployed: No Education: Master's Degree or Higher Difficulty w/ Childcare or Family Care: No Living arrangements: with family Spiritual care concerns: No Meds Home Medications and Allergies Home Medications Medication Instructions Recorded Confirmed Type prednisone 5 mg tablet 5 mg PO BID 08/02/22 02/28/23 History oxycodone 5 mg tablet 5 mg PO Q4H PRN pain #60 tabs 11/08/22 02/28/23 Rx calcitriol 0.25 mg PO DAILY 01/12/23 02/28/23 History abiraterone 250 mg tablet 1,000 mg PO DAILY 02/25/23 02/28/23 History Allergies Allergy/AdvReac Type Severity Reaction Status Date / Time No Known Allergies Allergy Verified 02/28/23 12:53 Vital Signs Vital Signs - 24 hr 02/28/23 12:47 Temperature 36.7 C Pulse Rate 61 Respiratory Rate 18 Blood Pressure 149/72 H Pulse Oximetry 100 Oxygen Delivery Room Air Exam Const: General: comfortable and no acute distress Eyes: Sclera: sclerae normal Pupils: Equal, round and reactive pupils present Neck: Neck: supple and no JVD Chest: Other: Right upper anterior chest port, no redness or rash. Resp: Effort & Inspection: normal respiratory effort Auscultation: clear to auscultation bilaterally Cardio: Rate: regular rate Rhythm: regular rhythm GI: GI Palp: Yes Soft to palpation, No Firmness to palpation present (GI), No Tenderness to palpation present (GI), No Guarding due to palpation present (GI) and No Hernia present Neuro: General: gait normal Speech: normal speech Motor exam (neuro): 5/5 motor strength present throughout Sensory Exam: normal sensation Extrem: General: normal to inspection Psych: Mental Status: mental status grossly normal Affect: normal affect Assessment and Plan Assessment and plan (1) Metastatic malignant neoplasm to prostate: Code(s): C79.82 - Secondary malignant neoplasm of genital organs Status: Acute Assessment and Plan: Pt with metastatic prostate CA. No longer needs the port. Will remove the right IJ port in the OR today.
--- NOTE | 2023-02-28 15:21 | WPDHPUPDATE1 ---
History and Physical Update Update Date/Time: 02/28/23 15:21 History and Physical has been reviewed, including an updated exam of the patient. There are NO changes in the patient's condition. Risks, benefits, and alternatives have been discussed and questions answered. Patient agrees to proceed with procedure.
[2023-02-28] MEDS: ceFAZolin 2 GM/D5W 50 ML 2 GM/50 ML BAG IVPB (15:28)
[2023-02-28] MEDS: LIDO 1%/EPINEPHRINE 1:100,000 50 ML VIAL 7 ML INFILTRATE (15:45)
[2023-02-28 16:04] VITALS: BP 102/61; PULSE 71; RESP 12
[2023-02-28 16:28] VITALS: BP 164/77; PULSE 61; RESP 14
--- NOTE | 2023-02-28 16:31 | P.OP_ITS ---
Procedure Note - Detailed Date of Procedure 02/28/23 Pre-op Diagnosis metastatic prostate cancer Post-op Diagnosis Same Procedure Performed Removal of right internal jugular vein single-lumen port a catheter. Surgeon Ron Shafer MD Merchandising Execution Manager Lance Calhoun, [employer] Anesthesia MAC Indications Patient is a 62-year-old gentleman who has metastatic prostate cancer. He had a kiki catheter placed about 6 to 7 months ago for treatment. He no longer needs to kiki catheter now presents now for removal. Findings none significant Description of Procedure After informed consent was obtained patient brought to the operating room and placed supine position and then general LMA anesthesia was administered. The area the right upper anterior chest was then prepped and draped in usual sterile fashion. 1% lidocaine mixed with 0.5% Marcaine was then injected around the port and the old scar. I then used a scalpel to excise out the old scar sharply and the skin was discarded. I then dissected with electrocautery down onto the hub of the port and identified the catheter. Gentle traction on the catheter removed it from the right internal jugular vein. Pressure was then held on the area the right internal jugular vein for several minutes to achieve hemostasis. I then proceeded to excise the port from the subcutaneous port pocket electrocautery. Once it was freed it was then sent off table discarded. I then achieved hemostasis in the incision electrocautery. The fibrous capsule in the port pocket was then fulgurated with electrocautery. The incision was then closed utilizing interrupted 3-0 Vicryl sutures in subcutaneous tissues. The skin edges were approximated in a running subcuticular fashion utilizing a 4- 0 Monocryl suture. The incision was then cleaned and skin glue was applied. The patient tolerated the procedure well no complications. All sponges, needles, and instrument counts were correct at the end procedure. EBL was _2__cc. The patient was awakened and taken to recovery in stable and satisfactory condition. Implants None Estimated Blood Loss 2 Drains No Packing No Pathology None sent Complications No immediate complications Condition Stable Disposition PACU [facility] Billing Surgery - Charge Forward: Surgery Billing
== END 2023-02-28 16:50 | disposition home or self-care (01) ==
PROVIDERS: PCP Family Medicine; Visit Provider Surgery
PROC: (CPT 36589; principal; 2023-02-28 15:30)
DX: Z45.2 Encounter for adjustment and management of vascular access device (principal); C79.82 Secondary malignant neoplasm of genital organs; Z87.891 Personal history of nicotine dependence
CPT/HCPCS: 36590; J0690; J2250; J2704; J3010; J7120

== ENCOUNTER → 2023-03-03 09:33 | Outpatient (CLI) | payer OTHER, SELFPAY ==
--- NOTE | ~2023-03-03 | XR_ITS ---
EXAMINATION: XR sacrum coccyx min 2V INDICATION: Pelvic pain after fall TECHNIQUE: Three views of the sacrum and coccyx are obtained. COMPARISON: CT, 01/11/2023 FINDINGS: Bone alignment is normal. There is no fracture. Widespread sclerotic osseous metastases are again noted. IMPRESSION: 1. No acute osseous abnormality. 2. Widespread sclerotic osseous metastases. Reviewed, dictated and finalized at location L.
--- NOTE | ~2023-03-03 | XR_ITS ---
EXAMINATION: XR lumbar spine min 4V DATE: 03/03/2023 10:15 INDICATION: Low back pain TECHNIQUE: Anteroposterior, lateral, and bilateral oblique views of the lumbar spine, and cone-down l ateral view of the lumbosacral junction were obtained. COMPARISON: CT, 01/11/2023 FINDINGS: Bone alignment is normal. There is no fracture. The vertebral body heights are maintained. The intervertebral disc spaces are normal. Small degenerative osteophytes project from the anterior e ndplates of multiple vertebral bodies. There is mild facet joint osteoarthritis of the lower lumbar s pine. There are widespread sclerotic osseous metastases. IMPRESSION: 1. Mild lower lumbar spondylosis without acute osseous abnormality. 2. Widespread osseous metastatic disease. Reviewed, dictated and finalized at location L.
== END ==
PROVIDERS: PCP Family Medicine; Visit Provider Family Medicine
DX: M25.562 Pain in left knee (principal); S39.92XA Unspecified injury of lower back, initial encounter; W19.XXXA Unspecified fall, initial encounter; Z85.830 Personal history of malignant neoplasm of bone; C79.51 Secondary malignant neoplasm of bone; M47.896 Other spondylosis, lumbar region
CPT/HCPCS: 72110; 72220; 73564

== ENCOUNTER 2023-04-03 10:00 | Outpatient (CLI) | payer OTHER, SELFPAY ==
--- NOTE | ~2023-04-03 | MR_ITS ---
EXAMINATION: MR knee LT wo con DATE: 04/03/2023 10:42 INDICATION: Left knee pain. TECHNIQUE: Magnetic resonance imaging (MRI) of the left knee was performed without intravenous contra st. Sequences included axial PD-weighted FS FSE, coronal PD-weighted FSE and PD-weighted FS FSE, sagi ttal PD-weighted FSE, and sagittal T2-weighted FS FSE. COMPARISON: Left knee radiographs 03/03/2023 FINDINGS: Medial compartment: There is an undersurface horizontal tear of body and posterior horn of medial meniscus. There is cart ilage surface irregularity of tibial condyle. Femoral cartilage is normal. Lateral compartment: Lateral meniscus is normal. Femoral cartilage is normal. There is focal deep partial-thickness cartil age loss of tibial condyle posteriorly. Patellofemoral compartment: Patellar cartilage is normal. Trochlear cartilage is normal. There is edema of the suprapatellar fat pad. Ligaments and tendons: The anterior and posterior cruciate ligaments are normal. There are changes of prior sprains of media l collateral ligament and fibular collateral ligament characterized by thickening and increased signa l intensity proximally. There is mild patellar tendinopathy. Fluid: There is a small knee joint effusion. There is a small Munoz's cyst. There is mild prepatellar and cespedes perficial infrapatellar bursitis. IMPRESSION: 1. Focal moderate chondrosis of lateral tibial condyle and mild chondrosis of medial tibial condyle. 2. Tear of medial meniscus. 3. Small knee joint effusion. 4. Small Munoz's cyst. Reviewed, dictated and finalized at location E. IMPRESSION: 1. Focal moderate chondrosis of lateral tibial condyle and mild chondrosis of m edial tibial condyle. 2. Tear of medial meniscus. 3. Small knee joint effusion. 4. Small Munoz's cyst.
== END 2023-04-03 10:01 | disposition home or self-care (01) ==
PROVIDERS: PCP Family Medicine; Visit Provider Family Medicine
DX: M25.462 Effusion, left knee (principal); M71.22 Synovial cyst of popliteal space [Baker], left knee; S83.242D Other tear of medial meniscus, current injury, left knee, subsequent encounter; X58.XXXD Exposure to other specified factors, subsequent encounter
CPT/HCPCS: 73721

== ENCOUNTER 2023-04-20 15:49 | Outpatient (CLI) | payer OTHER, SELFPAY ==
--- NOTE | ~2023-04-20 | MR_ITS ---
MRI of the left femur CLINICAL HISTORY: Pain, metastatic prostate cancer TECHNIQUE: Sagittal T1-weighted and STIR images, and axial T1-weighted, T1 fat-sat, and STIR images w ere performed. Coronal large [id number] T1-weighted and STIR images were performed. Following intr avenous administration of 16 cc MultiHance gadolinium, T1-weighted fat-sat imaging was performed in t he axial, coronal planes. FINDINGS: There is extensive heterogeneous T2 hyperintense signal and T1 hypointense signal involving the bilateral femoral heads, bilateral femoral necks, and the proximal thirds of the bilateral femor al shafts, consistent with metastatic disease related to prostate cancer. These areas demonstrate het erogeneous postcontrast enhancement as well. No pathologic fracture evident. There is probable mild c hondromalacia of both hip joints. No hip joint effusion evident. There is minimal edema in the proximal quadriceps muscle bellies adjacent to the proximal femur, pres umably reactive. Remaining muscle signals are unremarkable. Visualized tendons appear intact. Subcuta neous soft tissues are unremarkable. No distinct soft tissue mass evident. IMPRESSION: Metastatic disease diffusely involving the bilateral femoral heads, bilateral femoral necks, and the proximal thirds of the bilateral femoral shafts. No pathologic fracture seen. Mild edematous change of the proximal left quadriceps muscles adjacent to the proximal femur, presuma anatoliy reactive. Reviewed, dictated and finalized at location . IMPRESSION: Metastatic disease diffusely involving the bilateral femoral heads, bilateral f emoral necks, and the proximal thirds of the bilateral femoral shafts. No pathologic fracture seen. Mild edematous change of the proximal left quadriceps muscles adjacent to the p roximal femur, presumably reactive.
--- NOTE | ~2023-04-20 | MR_ITS ---
MRI of the cervical spine Clinical History: Pain Technique: Axial T2-weighted and gradient images, and sagittal T1-weighted, T2-weighted, and STIR gia ges were acquired. Following intravenous administration of 16 cc MultiHance gadolinium, T1-weighted f at-sat imaging was performed in the axial and sagittal planes. COMPARISON: 06/29/2022 Findings: There is heterogeneous marrow signal throughout the osseous structures, with extensive area s of T1 hypointensity, T2 hyperintensity, and heterogeneous postcontrast enhancement throughout. Find ings are consistent with diffuse osseous metastatic disease. No fracture or subluxation evident. At C2-C3, there is small central disc ossify complex with mild flattening of the ventral cord. Bilate ral neural foramina are preserved. At C3-C4, disc ossify composition is present, with mild canal stenosis and mild ventral cord flatteni ng. There is left neural foraminal narrowing. Right neural foramen preserved. At C4-C5, there is disc osteophyte complex with canal stenosis but no larry cord compression. There i s probable mild bilateral neural foraminal narrowing. At C5-C6, there is minimal disc osteophyte complex with probable mild canal stenosis but no larry cor d compression. There is bilateral neural foraminal narrowing with facet arthropathy. At C6-C7, there is no definite canal stenosis or cord compression. Probable left neural foraminal adrian rowing. Right neural foramen preserved. No abnormal signal evident in the spinal cord. Paravertebral soft tissues are grossly unremarkable. N o abnormal soft tissue enhancement seen. Impression: Diffuse osseous metastatic disease. Mild to moderate degenerative spondylosis, as detailed above. Reviewed, dictated and finalized at [facility]. Impression: Diffuse osseous metastatic disease. Mild to moderate degenerative spondylosis, as detailed above.
== END 2023-04-20 15:50 | disposition home or self-care (01) ==
PROVIDERS: PCP Family Medicine; Visit Provider Orthopaedic Surgery
DX: M25.562 Pain in left knee (principal); M79.652 Pain in left thigh; R20.8 Other disturbances of skin sensation; M47.892 Other spondylosis, cervical region; C79.51 Secondary malignant neoplasm of bone
CPT/HCPCS: 72156; 73720; A9577

== ENCOUNTER 2023-05-16 18:46 | Outpatient (NON) | payer OTHER, SELFPAY ==
[2023-05-19 12:53] LABS: Amphetamines NEGATIVE ng/mL (<500); Barbiturates NEGATIVE ng/mL (<300); Benzodiazepines NEGATIVE ng/mL (<100); Cocaine Metabolite NEGATIVE ng/mL (<150); Marijuana Metabolite NEGATIVE ng/mL (<20); Methadone Metabolite NEGATIVE ng/mL (<100); Opiates POSITIVE ng/mL (<100); Oxidant NEGATIVE mcg/mL (<200); pH 6.7 (4.5-9.0)
== END 2023-05-16 18:47 | disposition home or self-care (01) ==
LOC: ANHLAB 18:48
PROVIDERS: PCP Family Medicine; Visit Provider Family Medicine
DX: Z79.899 Other long term (current) drug therapy (principal)
CPT/HCPCS: 80307

== ENCOUNTER 2023-09-07 08:10 | Outpatient (CLI) | payer OTHER, SELFPAY | END 2023-09-07 08:11 | disposition home or self-care (01) | LOC: ANHAUDASC 08:11 | PROVIDERS: PCP Family Medicine; Visit Provider Nurse Practitioner | DX: H90.6 Mixed conductive and sensorineural hearing loss, bilateral (principal) | CPT/HCPCS: 92557; 92567 ==

== ENCOUNTER 2023-09-16 11:50 | Observation (INO) | payer OTHER, SELFPAY ==
[2023-09-16] VITALS (16 sets, daily range): BP systolic 135–187; BP diastolic 59–95; PULSE 68–83; RESP 14–20; TEMP 36.4–37; O2SAT 96–100
--- NOTE | 2023-09-16 11:57 | ED.RECABL ---
HPI - Recheck/Abnormal Lab/Rx General Chief Complaint: Recheck/Abnormal Lab/Rx Stated Complaint: oncologist sent r/t blood work Time Seen by Provider: 09/16/23 11:56 63 years old white male, history of prostatic cancer with bone metastasis all over, referred to our emergency room by his oncologist at why she used to get platelet and blood transfusion. Patient denying any new symptoms, currently been hurting all over which is chronic and he is on 4 mg of Dilaudid p.o. every 4 hours as needed. He denies any fever, chills, nausea, vomiting, diarrhea, constipation, abdominal pain chest pain or shortness of breath. Patient reported having no blood transfusion in the past, last blood transfusion was 2 weeks ago Related Data Home Medications Medication Instructions Recorded Confirmed abiraterone 250 mg tablet (Zytiga) 750 mg PO DAILY 03/03/23 08/23/23 Allergies Allergy/AdvReac Type Severity Reaction Status Date / Time No Known Allergies Allergy Verified 09/16/23 12:01 Review of Systems Review of Systems: All systems reviewed & are unremarkable except as noted in HPI and below PMFSH Past Medical History Medical History Acute anemia Kidney stones Prostate cancer Surgical History Surgical History History of tonsillectomy Family History Family History Father Malignant neoplasm of prostate Social History Social History Social History: Surrogate medical decision maker: Glory Sanabria, spouse. Code status: Full code. Smoking packs per day: 0.5 Smoking cigarettes per day: 10.0 Years smoked: 10 Smoking pack-years: 5.00 Smoking status: Former smoker Tobacco type: cigarettes Second hand tobacco smoke exposure: No Smoking end date: 05/22/22 Alcohol intake: never Drinks per week: 0 Substance use: never Substance use type: does not use Lack of Transportation: No Lack of Food: Never True Current Housing: I Have Housing Concerned About Future Housing: No Difficulty Paying Gas/Electric Bills: No Difficulty Paying for Meds: No Currently Unemployed: No Education: Master's Degree or Higher Difficulty w/ Childcare or Family Care: No Living arrangements: with family Spiritual care concerns: No Exam Narrative: General appearance: Well-developed, well-nourished Skin: Pale Head: Normocephalic, nontraumatic Eyes: Clear conjunctiva ENT: Oropharynx normal, ears normal, nose normal Neck: Supple, nontender Chest and respiratory: Airway patent, no respiratory distress, no accessory muscle use Heart: Regular rate/rhythm Abdomen: Soft, nontender, no organomegaly, quiet bowel sounds Vascular: Normal peripheral pulses, normal capillary refill. Musculoskeletal: Normal range of motion, nontender back Neurologic: Alert and oriented ?3, [employer] is normal as tested, no gross motor deficit Course Consultations Consultation #1: Dr. Rivera 1 unit of platelets, 2 units of blood transfusion Date: 09/16/23 Time: 13:46 Vital Signs Vital signs: Vital Signs Temperature 36.5 C 09/16/23 11:58 Pulse Rate 83 09/16/23 11:58 Respiratory Rate 20 09/16/23 11:58 Blood Pressure 142/67 H 09/16/23 11:58 Pulse Oximetry 100 09/16/23 11:58 Oxygen Delivery Room Air 09/16/23 11:58 Temperature 37.0 C 09/16/23 13:50 Pulse Rate 72 09/16/23 13:50 Respiratory Rate 14 09/16/23 13:50 Blood Pressure 155/68 H 09/16/23 13:50 Pulse Oximetry 97 09/16/23 13:50 Oxygen Delivery Room Air 09/16
[2023-09-16 12:24] LABS: Eosinophils Percent Auto 1.5 % (0-4.4); Hematocrit 22.4 % (42.0-52.0); Immature Granulocyte Absolute 0.08 K/mm3 (0.00-0.031); Immature Granulocyte Percent A 3.9 % (0-0.5); Immature Platelet Fraction Pct 5.7 % (0.9-11.2); Lymphocytes Absolute Auto 0.69 K/mm3 (0.9-3.2); Lymphocytes Percent Auto 33.8 % (18.3-44.2); Mean Corpuscular HGB Conc 31.3 g/dl (32-36); Mean Corpuscular Hemoglobin 29.9 pg (26-34); Mean Corpuscular Volume 95.7 fl (80-100); Mean Platelet Volume 10.1 fl (7.4-10.4); Monocytes Absolute Auto 0.3 K/mm3 (0.1-0.6); Monocytes Percent Auto 14.7 % (2.6-8.5); Neutrophils Absolute Auto 0.9 K/mm3 (1.3-6.7); Neutrophils Percent Auto 45.1 % (45.5-73.1); Nucleated Red Blood Cells Perc 1.5 % (0.0-0.2); Platelet Count Result 29 k/mm3 (150-375); Red Blood Count 2.34 M/mm3 (4.6-6.20); Red Cell Distribution Width 18.4 % (11.5-14.5)
[2023-09-16 12:31] LABS: Alanine Aminotransferase 28 U/L (6-50); Albumin Level 3.7 g/dL (3.5-5.1); Alkaline Phosphatase 1021 U/L (38-126); Anion Gap 6 mmol/L (8-16); Aspartate Amino Transferase 125 U/L (17-59); Blood Urea Nitrogen 26 mg/dL (9-20); Calcium 10.3 mg/dL (8.4-10.2); Carbon Dioxide 33 mmol/L (22-30); Chloride 97 mmol/L (98-107); Estimated CRCL calculation 88 ml/min; Estimated Glomerular Filt Rate > 60; Glucose 131 mg/dL (65-110); Potassium 3.6 mmol/L (3.4-5.0); Sodium 136 mmol/L (137-145)
[2023-09-16 12:43] LABS: Anisocytosis 1+ (NORMAL); Hypochromasia 2+ (NORMAL); Platelet Estimate Decreased (Adequate); Tear Drop Cells 1+ (NORMAL)
[2023-09-16 12:44] LABS: Schistocytes None Seen (NORMAL)
[2023-09-16 12:47] LABS: INR 1.1; Prothrombin Time 14.3 Seconds (11.1-14.7)
[2023-09-16 12:48] LABS: Partial Thromboplastin Time 33.9 SECONDS (22.3-36.8)
[2023-09-16] MEDS: SODIUM CHLORIDE 0.9% IV 250 ML 30 ML IV CONT (13:49)
[2023-09-16] MEDS: TUBING, BLOOD SET 1 EACH XX (13:50)
--- NOTE | 2023-09-16 14:38 | PC.NURSE ---
tray ordered at [id number]
--- NOTE | 2023-09-16 15:23 | PM.IMHP ---
H&P: HPI History of Present Illness Date/Time: 09/16/23 15:23 Chief Complaint: Abnormal labs Narrative: Mike farmer is a 63 year old male with PMHx of Anemia, Kidney stone, Prostate cancer with metastasis to bone. He presented to the ER after a visit yesterday with his oncologist in which he had blood work completed. The blood work resulted last night and patient was told to go to ER for transfusion of blood and platelets, however patient told oncologist he would come to ER today. Patient denies any new symptoms at this time, such as fevers, chills, nausea, vomiting or diarrhea. He admits to his chronic pain of generalized body pain. He stated if I don't take the pain medication, the pain will be all over unbearable. Patient stated he has received atleast 4 prior blood transfusions. Patient's daughter at bedside, she stated that patient underwent chemo from 09/13- 01/11, then tried immunotherapy. He was only able to complete 1 round when his labs values became abnormally low. Patient and daughter stated that patient's current pain control regimen includes morphine pain pump (implanted left lower abd) and Dilaudid 4mg Q4hr. He is also taking Zytiga 750mg PO daily. Review of Systems Review of Systems: All systems reviewed & are unremarkable except as noted in HPI and below PMFSH Past Medical History Medical History Acute anemia Chronic pain Kidney stones Metastasis to bone Prostate cancer Surgical History Surgical History History of tonsillectomy Family History Family History Father Malignant neoplasm of prostate Social History Social History Social History: Surrogate medical decision maker: Glory Sanabria, spouse. Code status: Full code. Smoking packs per day: 0.5 Smoking cigarettes per day: 10.0 Years smoked: 10 Smoking pack-years: 5.00 Smoking status: Former smoker Tobacco type: cigarettes Second hand tobacco smoke exposure: No Smoking end date: 05/22/22 Alcohol intake: never Drinks per week: 0 Substance use: never Substance use type: does not use Lack of Transportation: No Lack of Food: Never True Current Housing: I Have Housing Concerned About Future Housing: No Difficulty Paying Gas/Electric Bills: No Difficulty Paying for Meds: No Currently Unemployed: No Education: Master's Degree or Higher Difficulty w/ Childcare or Family Care: No Living arrangements: with family Spiritual care concerns: No Meds Home Medications and Allergies Home Medications Medication Instructions Recorded Confirmed Type abiraterone 250 mg tablet (Zytiga) 750 mg PO DAILY 03/03/23 08/23/23 History oxycodone 10 mg tablet 10 mg PO Q6H PRN pain #30 tabs 05/19/23 08/23/23 Rx duloxetine 60 mg capsule,delayed 60 mg PO DAILY #30 caps 06/16/23 08/23/23 Rx release Allergies Allergy/AdvReac Type Severity Reaction Status Date / Time No Known Allergies Allergy Verified 09/16/23 12:01 Vital Signs Vital Signs - 24 hr 09/16/23 11:58 09/16/23 13:50 09/16/23 14:08 Temperature 97.7 F 98.6 F 97.7 F Pulse Rate 83 72 77 Respiratory Rate 20 14 16 Blood Pressure 142/67 H 155/68 H 144/71 H Pulse Oximetry 100 97 97 Oxygen Delivery Room Air Exam Narrative: Cont: Ill-appearing, alert & oriented x 4 HEENT: normocephalic, PERRL, EIOM, [place]-right ear Neck: supple, FROM, Respiratory: Lung clear throughout, respirations non-labored, Cardiology: Normal rate and rhythm, No murmur GI: Non-tender, non-distend, BS present and active in all quad, Pain pump placed in left quad Skin: Ashen, dry, no lesions or abrasions Neuro: Alert and oriented x 4, Psych: Cooperative, pleasant and appropriate for situation H&P: Results Labs Labs: Short CBC 09/16/23 Range/Un
--- NOTE | 2023-09-16 16:25 | ADMGEN ---
This patient, Mike Sanabria III, was admitted to Medical Room 344-01. Patient/family oriented to hospital policies and general routines including ID bracelet, bed and alarms, visiting hours, pain management, procedures, bathroom and other care routines, personal items, smoking policy, room service/diet, and visiting hours. Information on how to activate the Rapid Response Team has been discussed. Patient/Family are encouraged to report perceived risks to care and to ask questions if they do not understand what they are told or what they should do.
--- NOTE | 2023-09-16 17:27 | PDONCCN ---
HPI - Date of Consult Date/Time: 09/16/23 17:27 Requesting Physician: Je Eldridge MD Primary Care Provider: Jenny Burnett, - Consult Narrative Reason for consult: Metastatic prostate cancer Narrative: Mike Sanabria III is a 63 year old male with history of metastatic prostate cancer status post bone marrow aspiration and biopsy performed June 30, 2022 showed adenocarcinoma of prostate. Skeletal survey showed widespread bone metastasis with left external, mediastinal and bilateral supraclavicular lymphadenopathy. He was treated with chemotherapy with Taxotere along with Lupron and Zytiga. His last chemotherapy with Taxotere was in February 2023 and further chemotherapy was discontinued due to poor tolerance and neuropathy. He lost follow-up and went to [facility] for relapse of the disease with rising PSA. He was started on treatment with pluvicto and received 1st treatment in March. He came into the hospital with tiredness and fatigue and the blood workup showed severe thrombocytopenia and anemia. Patient also has morphine pump implanted in May last year for pain control. He denies any other complaint. Review of Systems - Review of Systems All systems reviewed & are unremarkable except as noted in HPI and bel [facility] Medical History: Medical History (Last Reviewed 09/16/23 @ 15:39 by Mariel Spivey APRN) Acute anemia Chronic pain Kidney stones Metastasis to bone Prostate cancer Surgical History: Surgical History (Last Reviewed 09/16/23 @ 15:39 by Mariel Spivey APRN) History of tonsillectomy Family History: Family History (Last Reviewed 09/16/23 @ 15:39 by Mariel Spivey APRN) Father Malignant neoplasm of prostate - Social History Social History: Social History (Last Reviewed 09/16/23 @ 15:39 by Mariel Spivey APRN) Alcohol Use: Alcohol intake: never Drinks per week: 0 Alcohol use details: Substance Use: Substance use: never Substance use type: does not use Others: Spiritual care concerns: No Living Arrangements: Living arrangements: with family Smoking Status: Smoking status: Former smoker Second hand tobacco smoke exposure: No Smoking Pack-years: Smoking packs per day: 0.5 Smoking cigarettes per day: 10.0 Years smoked: 10 Smoking pack-years: 5.00 Social Determinants of Health: Do You Feel Safe in your Home?: Yes Has the Lack of Transportation Kept You From Medical Appointments or From Getting Medications?: No Within the Past 12 Months, Were You Worried Whether Your Food Would Run Out Before You Got Money to Buy More?: Never True What is Your Housing Situation Today?: I Have Housing Are You Worried That in the Next 2 Months, You May Not Have Your Own Housing to Live In?: No Do You Have Trouble Paying Your Heating Or Electricity Bill?: No Do You Have Trouble Paying For Medicines?: No Are You Currently Unemployed and Looking for Work?: No Highest Level of Education Completed: Master's Degree or Higher Do You Have Trouble With Childcare or the Care of a Family Member?: No Exam - Vital Signs Vital Signs - 24 hr 09/16/23 11:58 09/16/23 13:50 09/16/23 14:08 Temperature 36.5 C 37.0 C 36.5 C Pulse Rate 83 72 77 Respiratory Rate 20 14 16 Blood Pressure 142/67 H 155/68 H 144/71 H Pulse Oximetry 100 97 97 Oxygen Delivery Room Air 09/16/23 15:08 09/16/23 13:00 09/16/23 15:00 Temperature 36.7 C 36.6 C Pulse Rate 72 74 70 Respiratory Rate 16 14 16 Blood Pressure 164/72 H 135/59 L 146/95 H Pulse Oximetry 100 98 97 Oxygen Delivery 09/16/23 16:01 09/16/23 14:00 09/16/23 16:03 Temperature 36.6 C 36.5 C Pulse Rate 68 72 74 Respiratory Rate 14 16 16 Blood Pressure 166/88 H 155/68 H 141/69 H Pulse Oximetry 97 98 98 Oxygen Delivery 09/16/23 16:35 Temperature 36.8 C Pulse Rate 73 Respiratory Rate 16 Blood Pressure 174/78 H Pulse
--- NOTE | 2023-09-16 18:21 | PHAR ---
PT'S HOME MED ABIRATERONE 250 MG TABS VERIFIED BY PHARMACY. PHARMACY LABEL SI MG DAILY
[2023-09-16] MEDS: hydrALAZINE HCL 20 MG/ML VIAL 10 MG IV PUSH (23:21)
[2023-09-16] MEDS: ACETAMINOPHEN 325 MG TABLET 650 MG PO (23:25)
[2023-09-16] MEDS: HYDROmorphone HCL INJ (*CRX) 1 MG/ML SYR 2 MG IV PUSH (23:59)
[2023-09-17] VITALS (12 sets, daily range): BP systolic 152–181; BP diastolic 60–74; PULSE 56–73; RESP 12–21; TEMP 36.6–37; O2SAT 94–100
[2023-09-17] MEDS: LABETALOL HCL INJ 100 MG/20 ML VIAL 20 MG IV PUSH ×2 (00:43→11:39)
[2023-09-17] MEDS: SODIUM CHLORIDE 0.9% IV 250 ML 75 ML (01:37)
[2023-09-17] MEDS: HYDROmorphone HCL INJ (*CRX) 1 MG/ML SYR 2 MG IV PUSH (05:09)
[2023-09-17] MEDS: METOPROLOL TARTRATE 25 MG TABLET PO (05:15)
[2023-09-17 07:50] LABS: Basophils Percent Auto 0.4 % (0.2-1.2); Eosinophils Absolute Auto 0.1 K/mm3 (0-0.3); Eosinophils Percent Auto 2.7 % (0-4.4); Hematocrit 28.2 % (42.0-52.0); Hemoglobin 9.2 g/dL (14.0-18.0); Immature Granulocyte Absolute 0.13 K/mm3 (0.00-0.031); Immature Granulocyte Percent A 5.8 % (0-0.5); Immature Platelet Fraction Pct 2.9 % (0.9-11.2); Lymphocytes Absolute Auto 0.69 K/mm3 (0.9-3.2); Lymphocytes Percent Auto 30.8 % (18.3-44.2); Mean Corpuscular HGB Conc 32.6 g/dl (32-36); Mean Corpuscular Hemoglobin 29.3 pg (26-34); Mean Corpuscular Volume 89.8 fl (80-100); Mean Platelet Volume 10.8 fl (7.4-10.4); Monocytes Absolute Auto 0.4 K/mm3 (0.1-0.6); Monocytes Percent Auto 15.6 % (2.6-8.5); Neutrophils Percent Auto 44.7 % (45.5-73.1); Nucleated Red Blood Cells Perc 0.9 % (0.0-0.2); Platelet Count Result 41 k/mm3 (150-375); Red Blood Count 3.14 M/mm3 (4.6-6.20); Red Cell Distribution Width 17.9 % (11.5-14.5); White Blood Count 2.2 K/mm3 (4.5-10.0)
[2023-09-17] MEDS: ONDANSETRON INJ 4 MG/2 ML VIAL IV PUSH (08:14)
[2023-09-17 08:16] LABS: Anisocytosis 1+ (NORMAL); Platelet Estimate Decreased (Adequate); Tear Drop Cells 1+ (NORMAL)
[2023-09-17 08:17] LABS: Hypochromasia 1+ (NORMAL); Schistocytes None Seen (NORMAL)
--- NOTE | 2023-09-17 13:01 | PM.DS ---
DS: Admitting Diagnosis Discharge Date 09/17/23 Admitting Diagnosis Anemia, Thrombocytopenia, Prostate Cancer DS: Discharge Diagnosis Discharge Diagnosis (1) Anemia: Code(s): D64.9 - Anemia, unspecified Status: Acute Assessment and Plan: Pancytopenia Oncologist request 2 units of PRBC and 2 Platelets H/H 7.0/22.4 Patient expressed generalized weakness- contributes this to dx process vs anemia. Infuse Blood and platelet product today 09/17/23: Patient received blood product of 2 units PRBC and 1 unit platelets Hgb/Hct 9.2/28.2 Oncology, Dr Rivera saw patient and patient was instructed to follow-up with Dr Mcqueen at [facility]. Oncology agreeable with discharge at this time (2) Chronic pain: Code(s): G89.29 - Other chronic pain Status: Acute Assessment and Plan: Chronic pain due to prostate cancer that has metastized to multiple bones Chronic narcotic use- at home regimen is morphine pump and diliaudid 4mg Q4hrs Will hold PO pain medications while admitted and resume upon discharge Will provided IV pain medication for pain control while admitted- 2mg Dilaudid IV q4hr 09/17/23: Patient seen today at bedside and stated he is comfortable, stated pain is at baseline Continue home pain medication regimen. Follow-up with oncology provider (3) Prostate cancer metastatic to bone: Code(s): C61 - Malignant neoplasm of prostate; C79.51 - Secondary malignant neoplasm of bone Status: Acute Assessment and Plan: Oncology with [facility] Metastatic dx wide spread to bone- including bilateral femurs 09/17/23: Patient seen by oncology Dr Rivera, advised to follow-up with his oncologist Dr Mcqueen at [facility]. (4) Fatigue: Qualifiers: Fatigue type: due to neoplasm Qualified Code(s): R53.0 - Neoplastic (malignant) related fatigue Code(s): R53.83 - Other fatigue Status: Acute Assessment and Plan: Chronic fatigue contributory to cancer dx process vs anemia Weakness admitted Fall precautions 09/17/23: Patient received blood products, stated fatigue is at baseline DS: Summary Hospital Course Reason for hospitalization: Anemia, Thrombocytopenia, Prostate Cancer Hospital Course: Mike farmer is a 63 year old male with PMHx of Anemia, Kidney stone, Prostate cancer with metastasis to bone. He presented to the ER after a visit with his oncologist in which he had blood work completed. The blood work resulted and patient was told to go to ER for transfusion of blood and platelets. Patient stated he has received atleast 4 prior blood transfusions. Patient's daughter was at bedside, she stated that patient underwent chemo from 09/13- 01/11, then tried immunotherapy with Pluvecto. He was only able to complete 1 round when his labs values became abnormally low.Patient and daughter stated that patient's current pain control regimen includes morphine pain pump (implanted left lower abd) and Dilaudid 4mg Q4hr. He is also taking Zytiga 750mg PO daily. Patient was seen by oncology Dr. Rivera, who noted the patient's significant pancytopenia which is not uncommon from Pluvecto which is known to cause myelosuppression. Oncology advised the patient to follow up with is oncologist Dr Mcqueen at [facility]. Patient blood pressure noted to be elevated after transfusion, treated with PO and IV medication administrations and retuned to baseline admission BP. Today patient denies any new symptoms at this time, such as fevers, chills, nausea, vomiting or diarrhea. He admits to his chronic pain of generalized body pain, but stated this is his baseline. Patient educated to follow up with PCP for BP checks. Status at Discharge Cognitive/behavioral status at discharge: At baseline Functional status at discharge: independent ambulation Overall status at discharge: patient is back to baseline Time Spent with Patient Time attestation: Total ruben
== END 2023-09-17 14:45 | disposition home or self-care (01) ==
LOC: ANHED 13:48 → ANH3MED 16:01
PROVIDERS: Nurse Practitioner Family; Admitting Provider Internal Medicine; Emergency Provider Emergency Medicine; PCP Family Medicine; Visit Provider Internal Medicine
DX: D64.9 Anemia, unspecified (principal); G89.29 Other chronic pain; D69.6 Thrombocytopenia, unspecified; C61 Malignant neoplasm of prostate; C79.51 Secondary malignant neoplasm of bone; R53.0 Neoplastic (malignant) related fatigue; Z87.891 Personal history of nicotine dependence; Z79.891 Long term (current) use of opiate analgesic
CPT/HCPCS: 36415; 36430; 80053; 85025; 85055; 85610; 85730; 86850; 86900; 86901; 86923; 96361; 96374; 96375; 99285; A9270; G0378; J0360; J1170; J2405; J7050; P9016; P9034